=== PATIENT | male | born 1995 | race Caucasian/White ===

== ENCOUNTER → 2017-01-15 | Outpatient (CLI) | payer MEDICAID ==
[~2017-01-15] MED LIST: BACTROBAN2% TP; KEFLEX 500MG.500 MG PO; LEVAQUIN 750 M750 MG PO; MOTRIN400 MG PO; PROTONIX 40MG T40 MG PO; ZITHROMAX Z-PA250 M1 PO
--- NOTE | 2017-01-15 14:48 | RADIOLOGY REPORT PS360 ---
PROCEDURE: 2-D M-mode and color Doppler study INDICATIONS FOR THE TEST: Chest pain COPD Heart Murmur Tobacco Smoking Palpitations Fatigue Syncope Edema Hypertension Diabetes Mellitus Rheumatic Fever SOB BALLARD Obesity Hyperlipidemia Family History HD Additional History PERICARDIAL WINDOW,TACHYCARDIA PATIENT INFORMATION HEIGHT: 72 WEIGHT:187 GENDER: Male B/P:136/69 2-D/M-MODE INTERPRETATION: 2-D MEASUREMENTS OBSERVED VALUES IN CMS Right Ventricular Dimension (RVDd) 2.3. Interventricular Septum (Thickness)(IVsd) .9 Left Ventricular Internal Dimensions(LVIDd) 5.5 Left Ventricular Posterior Wall (Thickness)(LVPWd) .9 Aortic Root 3.0 Aortic Cusp Separation 1.7 Left Atrial Dimensions (LAD) 2.7 2D 1. Left atrium is normal size, left ventricle is normal size, there is no concentric left ventricular hypertrophy, visually estimated ejection fraction of 55% with no obvious regional wall motion abnormality. 2. The right atrium and right ventricle are normal size and contractility. 3. The aortic, mitral and tricuspid valve is structurally normal. 4. The pulmonic valve is not well visualized. 5. No significant pericardial effusion noted. DOPPLER INTERROGATION: Doppler interrogation of the aortic mitral and tricuspid valvular presence of mild mitral and tricuspid regurgitation, tricuspid regurgitant jet velocity insufficient for calculation of the right ventricular systolic pressure, diastolic parameters are within normal range. CONCLUSION: 1. Normal left ventricular size, preserved left ventricular systolic function, visually estimated ejection fraction of 55% with no obvious regional wall motion abnormality, there is no concentric left ventricular hypertrophy, diastolic parameters are within normal range. 2. Mild mitral and tricuspid regurgitation. 3. No significant pericardial effusion noted.
== END ==
LOC: RT 07:42
DX: R00.0 Tachycardia, unspecified (principal); M25.511 Pain in right shoulder; Z86.79 Personal history of other diseases of the circulatory system

== ENCOUNTER 2017-05-05 12:47 | Emergency (ER) | payer SELFPAY ==
[~2017-05-05] VITALS: Ht 182.9 cm; Wt 90.7 kg
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
[2017-05-05 13:20] VITALS: BP 126/70
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
--- OUTSIDE RECORDS SUMMARY | 2017-05-06 17:13 | External Medical Summary Rpt ---
Author Author , CONSTANZA Organization CONSTANZA Address Unknown Phone [email or web address] Care Team Providers Care Communications Officer Name Role Phone AHMED ADN, AHMED ADN Unavailable Unavailable AHMED ADN, AHMED ADN Unavailable Unavailable ARNOLD EVERARDO, ARNOLD Unavailable Unavailable EVERARDO ARNOLD EVERARDO, ARNOLD Unavailable Unavailable EVERARDO [facility] Unavailable Unavailable COMPANY, [facility] SWAN RASHEL, SWAN RASHEL Unavailable Unavailable KATHY, MANNY, Unavailable Unavailable KATHY, MANNY [facility] [place], [facility] [place] GAEL HEN, GAEL Unavailable Unavailable HEN GAEL HEN, GAEL Unavailable Unavailable HEN MOON HINTON, Unavailable Unavailable MOON HINTON RIT, HODGES Unavailable Unavailable RIT HAGCHSHANNON SOSA, Unavailable Unavailable HAGENSCHNEIDER SOSA ENGLAND TER, ENGLAND Unavailable Unavailable TER [facility] Un[facility] Un[facility], [facility] MASTERS EVERARDO, MASTERS Unavailable Unavailable EVERARDO TURCIOS COLBY, TURCIOS COLBY Unavailable Unavailable TURCIOS COLBY, TURCIOS COLBY Unavailable Unavailable JENNIFER GRE, Unavailable Unavailable JENNIFER GRE JENNIFER GRE, Unavailable Unavailable JENNIFER GRE [facility] Unavailable Unavailable ASSOCIAT, [facility], ASSOCIATE PROFESSOR OF SURGERY [facility] Unavailable Unavailable CO [facility], [facility], ASSOCIATE PROFESSOR OF SURGERY AB[facility] CO [facility], Unavailable Unavailable [facility] Unavailable Unavailable [facility]ALTH, [facility] SWARTZ JAM, SWARTZ Unavailable Unavailable JAM SWARTZ JAM, SWARTZ Unavailable Unavailable LENNY STALEYFRBLESSING Unavailable Unavailable BROOKLYN DUNLAP, Unavailable Unavailable [place]OOK[place]N JAMES CHAPA, JOSE G Unavailable Unavailable EDUARD HERNANDEZ JR ZION, DAVID Unavailable Unavailable ZION Purpose Continuity of Care Document - 06-03-2009 through 2016 Problems Code Diagnosis DOS Provider Status 3670 HYPERMETROP 10-27-2013 TURCIOS COLBY IA V720 EXAMINATION 11-27-2012 JENNIFER OF EYES GRE AND VISION 460 ACUTE 11-26-2012 AHMED ADN NASOPHARYNG ITIS 4658 ACUTE URIS 04-15-2012 GAEL HEN OF OTHER MULTIPLE SITES 7856 ENLARGEMENT 04-15-2012 GAEL HEN OF LYMPH NODES V1582 PERS HX 04-15-2012 GAEL HEN TOBACCO USE PRESENTING [facility] V5869 LONG-TERM 04-15-2012 GAEL HEN (CURRENT) USE OF OTHER MEDICATIONS 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 49848 PAIN IN 03-21-2012 [facility], RADIOLOGY UPPER ARM ASSOCIAT 09911 PAIN IN 03-21-2012 AHMED ADN JOINT PELVIC REGION AND THIGH 7231 CERVICALGIA 03-21-2012 [facility] 7291 UNSPECIFIED 03-21-2012 [facility], MYALGIA ASSOCIATE PROFESSOR OF SURGERY AND [facility] MYOSITIS HOS 7292 UNSPECIFIED 03-21-2012 [facility], NEURALGIA ASSOCIATE PROFESSOR OF SURGERY NEURITIS [facility] CO AND HOS RADICULITIS 7295 PAIN IN 03-21-2012 [facility] TISSUES OF ASSOCIAT LIMB 93551 PAIN IN 02-18-2012 [facility], RADIOLOGY ANKLE AND ASSOCIAT FOOT 52749 UNSPECIFIED 02-18-2012 [facility], SITE OF ASSOCIATE PROFESSOR OF SURGERY ANKLE [facility] CO SPRAIN AND HOS STRAIN 9599 INJURY 02-18-2012 [facility] OTHER AND [facility] UNSPECIFIED ASSOCIAT UNSPECIFIED SITE 462 ACUTE 12-07-2011 ARNOLD EVERARDO PHARYNGITIS 4660 ACUTE 12-07-2011 ARNOLD EVERARDO BRONCHITIS 64574 UNSPECIFIED 10-25-2011 JENNIFER GRE ASTIGMATISM 0088 INTESTINAL 08-29-2011 [facility] DUE TO OTHER ORGANISM NEC 7242 LUMBAGO 08-22-2011 [facility] 7391 NONALLOPATH 08-22-2011 [facility] OF CERVICAL [facility] REGION NEC 7393 NONALLOPATH 08-22-2011 [facility] OF LUMBAR [facility] REGION NEC 0549 HERPES 06-05-2011 [facility] SIMPLEX [facility] WITHOUT RURAL MENTION OF HEALTH COMPLICATIO N 12460 CLOS 02-22-2011 SWARTZ JAM FRACTURE MID/PROXIMA L PHALANX/PHA LANG HAND 77498 CLOSED 02-21-2011 [facility] FRACTURE [facility] UNSPEC RURAL PHALANX/PHA HEALTH LANGES HAND 486 PNEUMONIA, 01-24-2010 [facility] UNSPECIFIED SERVICES ASS[facility]ATES 7862 COUGH 01-24-2010 [facility] Medications Na ND Rx Da Fi Fi Am Da Di Ph RX Ph St me C No te ll ll ou ys ag ar # ys at rm s nt no ma ic us Or Da si cy ia de te s n re d AM 00 09 09 0 21 7 CA 68 AH Ac OX 78 -0 -0 .0 RL 57 ME ti IC 12 6- 6- 00 IS 93 D ve IL 61 20 20 LE AD LI 30 11 [address] Mila 50 UG 0 MG CO MP CA AN PS Y UL E 64 09 09 1 30 14 CA 68 AH Ac 45 -0 -0 .0 RL 57 ME ti 50 6- 6- 00 IS 94 D ve 99 20 20 LE AD 39 [address] N UG CO MP AN Y NA 53 05 05 1 60 30 CA 68 AH Ac IA 74 -2 -2 .0 RL 16 ME ti OX 60 5- 5- 00 IS 64 D ve EN 18 20 20 LE AD 90 11 [address] Mila 5 UG MG CO TA MP BL AN ET Y AB 59 04 04 1 30 30 CA 67 GH Ac IL 14 -0 -0 .0 RL 99 AN ti IF 80 7- 7- 00 IS 03 TA ve Y 00 20 20 LE 5 71 [address] ME UG SH TA BL CO ET MP AN Y AZ 00 11 11 1 6. 6 EA 20 AR Ac IT 09 -2 -[address] 09 NO ti HR 37 2- 2- 0 SI 72 LD ve OM 14 20 20 DE YC 61 10 10 RI IN 8 PH CH AR AR 25 MA D 0 CY W MG OF TA BL CY ET NT HI AN A AZ 00 04 04 0 6. 6 EA 17 GA Ac IT 09 -2 -[address] 36 IN ti HR 37 7- 7- 0 SI 14 EY ve OM 14 20 20 DE YC 61 10 10 AL IN 8 PH CH AR AE 25 MA L 0 CY S MG OF TA BL CY ET NT HI AN A 49 04 04 0 40 10 EA 17 GA Ac 88 -2 -[address] 36 IN ti 40 7- 7- 00 SI 15 EY ve 77 20 20 DE 70 10 10 AL 1 PH CH AR AE MA L CY S OF CY NT HI AN A Procedures Procedure DOS Code Location Performer Comment [facility] 59636 [facility] 4 XM&EVAL COMPRHNSV ESTAB PT 1/> OPHTH 38323 JENNIFER RODRIGUEZ MEDICAL 3 GRE GRE XM&EVAL COMPRHNSV ESTAB PT 1/> DETERMINA 83475 JENNIFER RODRIGUEZ TION 3 GRE GRE REFRACTIV E STATE RADEX 87784 [facility] SPINE 2 EVERARDO CERVICAL RADIOLOGY 4 OR 5 ASSOCIAT VIEWS RADEX 87261 [facility] ELBOW 2 2 ASSOCIATE PROFESSOR OF SURGERY ASSOCIATE PROFESSOR OF SURGERY VIEWS AB[facility] CO HOS MYOGLOBIN 00672 [facility], 2 ASSOCIATE PROFESSOR OF SURGERY ASSOCIATE PROFESSOR OF SURGERY ABBIE [facility] CO HOS BLOOD 98486 [facility], DAVID JR COUNT 2 ASSOCIATE PROFESSOR OF SURGERY ZION COMPLETE [facility] AUTO&AUTO CO HOS DIFRNTL WBC RHEUMATOI 35058 [facility], D FACTOR 2 ASSOCIATE PROFESSOR OF SURGERY ASSOCIATE PROFESSOR OF SURGERY QUANTITAT AB[facility] ALY CO HOS CO HOS COMPREHEN 63914 [facility], SIVE 2 ASSOCIATE PROFESSOR OF SURGERY ASSOCIATE PROFESSOR OF SURGERY METABOLIC AB[facility]E [facility] PANEL CO HOS CO HOS BLOOD 22747 [facility], COUNT 2 ASSOCIATE PROFESSOR OF SURGERY ASSOCIATE PROFESSOR OF SURGERY SMEAR ABBIE [facility] MCRSCP CO HOS CO HOS W/MNL DIFRNTL WBC COUNT CREATINE 75215 [facility], KINASE MB 2 ASSOCIATE PROFESSOR OF SURGERY ASSOCIATE PROFESSOR OF SURGERY FRACTION ABBIE [facility] ONLY CO HOS CO HOS CREATINE 96653 [facility], KINASE 2 ASSOCIATE PROFESSOR OF SURGERY ASSOCIATE PROFESSOR OF SURGERY TOTAL ABBIE [facility] CO [facility] CO HOS SEDIMENTA 68570 [facility] TION RATE 2 ASSOCIATE PROFESSOR OF SURGERY ASSOCIATE PROFESSOR OF SURGERY RBC ABBIE [facility] NON-AUTOM CO HOS CO HOS ATED RADEX 86749 [facility] ELBOW 2 EVERARDO COMPLETE RADIOLOGY MINIMUM 3 ASSOCIAT VIEWS RADIOLOGI 99180 [facility] C 2 EVERARDO EXAMINATI RADIOLOGY ON FEMUR ASSOCIAT 2 VIEWS RADEX 91547 [facility], ANKLE 2 ASSOCIATE PROFESSOR OF SURGERY ASSOCIATE PROFESSOR OF SURGERY COMPLETE ABBIE ABBIE MINIMUM 3 CO HOS [facility] VIEWS RADIOLOGI 56392 [facility] EVERARDO EXAMINATI RADIOLOGY ON ANKLE ASSOCIAT 2 VIEWS OPHTH 23041 JENNIFER RODRIGUEZ [facility] 2 GRE GRE XM&EVAL COMPRE NEW PT 1/> VST FITTING 28343 KAR[place]INA TURCIOS COLBY SPECTACLE 2 S XCPT APHAKIA MONOFOCAL FRAMES V2020 K[place]INA TURCIOS COLBY PURCHASES 2 1 VISN V2103 [place] TURCIOS COLBY PLANO 2 TO+/-4.00 D SPHER 0.12-2.00 D CYL EA DETERMINA 11590 JENNIFER RODRIGUEZ TION 2 GRE GRE REFRACTIV E STATE THERAPEUT 46934 [facility] IC PX 1/> 1 [facility] CTR OF EACH [address] [place] [address] [facility] 1/> AREAS 1 [facility] EACH 15 CTR OF CTR [place] [address] [facility] 1/> AREAS 1 [facility] EACH 15 CTR OF CTR OF MIN MT MT NEUROMUSC REEDUCA THERAPEUT 86474 [facility] ONE IC PX 1/> 1 [facility] AREAS CTR OF CTR OF EACH 15 MT MT MIN EXERCISES CHIROPRAC 13444 [facility] TIC 1 [facility] MANIPULAT CTR OF CTR OF ALY [place] MT MT SPINAL 1-2 REGIONS APPL 92307 [facility] MODALITY 1 [facility] 1/> AREAS CTR OF CTR OF TRACTION MT MT MECHANICA L THERAPEUT 73766 [facility] ACTVITY 1 [facility] DIRECT PT CTR OF CTR OF CONTACT MT MT EACH 15 MIN THERAPEUT 03877 [facility] ACTVITY 1 [facility] DIRECT PT CTR OF CTR OF CONTACT MT MT EACH 15 MIN APPL 66878 [facility] MODALITY 1 [facility] WELLNESS 1/> AREAS CTR OF CTR OF TRACTION MT MT MECHANICA L CHIROPRAC 91701 [facility] TIC 1 [facility] MANIPULAT CTR OF CTR OF ALY [place] MT SPINAL 1-2 REGIONS THERAPEUT 56942 CH[facility] ONE [facility]IR[facility] ONE IC PX 1/> 1 [facility] AREAS CTR OF CTR OF EACH 15 [place] [address] [facility] ONE CHIRO ONE 1/> AREAS 1 [facility] EACH 15 CTR OF CTR [place] [address] [facility] ONE CHIRO ONE 1/> AREAS 1 [facility] EACH 15 CTR OF CTR OF MIN MT MT NEUROMUSC REEDUCA THERAPEUT 50229 [facility] ONE CHIRO ONE IC PX 1/> 1 [facility] AREAS CTR OF CTR OF EACH 15 MT MT MIN EXERCISES CHIROPRAC 01461 [facility] ONE TIC 1 [facility] MANIPULAT CTR OF CTR OF ALY TX MT MT SPINAL 1-2 REGIONS APPL 47833 [facility] ONE MODALITY 1 [facility] WELLNESS 1/> AREAS CTR OF CTR OF TRACTION MT MT MECHANICA L THERAPEUT 27692 [facility] ACTVITY 1 [facility] DIRECT PT CTR OF CTR OF CONTACT MT MT EACH 15 MIN THERAPEUT 31122 [facility] ACTVITY 1 [facility]NESS DIRECT PT CTR OF CTR OF CONTACT MT MT EACH 15 MIN APPL 54569 [facility] MODALITY 1 [facility] WELLNESS 1/> AREAS CTR OF CTR OF TRACTION MT MT MECHANICA L CHIROPRAC 23612 [facility] TIC 1 [facility] MANIPULAT CTR OF CTR OF ALY TX MT MT SPINAL 1-2 REGIONS SELF-CARE 26776 [facility] /HOME 1 [facility] MGMT CTR OF CTR OF TRAINING MT MT EACH 15 MINUTES THERAPEUT 03564 CH[facility] ONE CHIRO ONE IC PX 1/> 1 [facility] AREAS CTR OF CTR OF EACH [place] [address] [facility] ONE CHIRO ONE 1/> AREAS 1 [facility] EACH 15 CTR OF CTR [place] [address] [facility] ONE CHIRO ONE 1/> AREAS 1 [facility] EACH 15 CTR OF CTR OF MIN MT MT NEUROMUSC REEDUCA THERAPEUT 26503 CHIRO ONE CHIRO ONE IC PX 1/> 1 [facility] AREAS CTR OF CTR OF EACH 15 MT MT MIN EXERCISES CHIROPRAC 48502 [facility] ONE TIC 1 [facility] MANIPULAT CTR OF CTR OF ALY TX MT MT SPINAL 1-2 REGIONS APPL 65159 [facility] ONE [facility]IR[facility] ONE MODALITY 1 [facility] WELLNESS 1/> AREAS CTR OF CTR OF TRACTION MT MT MECHANICA L THERAPEUT 20826 [facility] ONE ACTVITY 1 [facility] DIRECT PT CTR OF CTR OF CONTACT MT MT EACH 15 MIN THERAPEUT 58221 [facility] ACTVITY 1 [facility]NESS DIRECT PT CTR OF CTR OF CONTACT MT MT EACH 15 MIN APPL 58132 [facility] ONE MODALITY 1 [facility] 1/> AREAS CTR OF CTR OF TRACTION MT MT MECHANICA L CHIROPRAC 49043 [facility] ONE TIC 1 [facility] MANIPULAT CTR OF CTR OF ALY TX MT MT SPINAL 1-2 REGIONS THERAPEUT 53108 CH[facility] ONE CHIRO ONE IC PX 1/> 1 [facility] AREAS CTR OF CTR OF EACH [place] [address] [facility] ONE CHIRO ONE 1/> AREAS 1 [facility] EACH 15 CTR OF CTR [place] [address] CHIR[facility] ONE CHIRO ONE 1/> AREAS 1 [facility] EACH 15 CTR OF CTR OF MIN MT MT NEUROMUSC REEDUCA THERAPEUT 99044 [facility] ONE CHIRO ONE IC PX 1/> 1 [facility] AREAS CTR OF CTR OF EACH 15 MT MT MIN EXERCISES CHIROPRAC 92252 [facility] ONE TIC 1 [facility] MANIPULAT CTR OF CTR OF ALY [place] MT MT SPINAL 1-2 REGIONS APPL 50356 [facility] ONE MODALITY 1 [facility] WELLNESS 1/> AREAS CTR OF CTR OF TRACTION MT MT MECHANICA L THERAPEUT 18225 [facility] ONE ACTVITY 1 [facility] DIRECT PT CTR OF CTR OF CONTACT [place] MT EACH 15 MIN THERAPEUT 24458 [facility] ONE ACTVITY 1 [facility] WE[facility]NESS DIRECT PT CTR OF CTR OF CONTACT MT MT EACH 15 MIN APPL 42735 [facility] ONE [facility] ONE MODALITY 1 WE[facility] WELLNESS 1/> AREAS CTR OF CTR OF TRACTION [place] MT MECHANICA L CHIROPRAC 55869 [facility] ONE TIC 1 [facility] MANIPULAT CTR OF CTR OF ALY [place] MT SPINAL 1-2 REGIONS THERAPEUT 36636 CH[facility] ONE [facility]IR[facility] ONE IC PX 1/> 1 [facility] AREAS CTR OF CTR OF EACH [place] [address] [facility] ONE CHIRO ONE 1/> AREAS 1 [facility] EACH 15 CTR OF CTR [place] [address] [facility] ONE CHIRO ONE 1/> AREAS 1 [facility] EACH 15 CTR OF CTR OF MIN MT MT NEUROMUSC REEDUCA THERAPEUT 45302 [facility] CHIRO ONE IC PX 1/> 1 [facility] AREAS CTR OF CTR OF EACH 15 MT MT MIN EXERCISES CHIROPRAC 44732 [facility] TIC 1 [facility] MANIPULAT CTR OF CTR OF ALY [place] MT SPINAL 1-2 REGIONS APPL 56172 [facility] ONE MODALITY 1 [facility] WELLNESS 1/> AREAS CTR OF CTR OF TRACTION MT MT MECHANICA L THERAPEUT 46468 [facility] ACTVITY 1 [facility] DIRECT PT CTR OF CTR OF CONTACT MT MT EACH 15 MIN THERAPEUT 82368 [facility] ACTVITY 1 [facility] WELLNESS DIRECT PT CTR OF CTR OF CONTACT MT MT EACH 15 MIN APPL 26369 [facility] MODALITY 1 [facility] WELLNESS 1/> AREAS CTR OF CTR OF TRACTION [place] MT MECHANICA L CHIROPRAC 80412 [facility] TIC 1 [facility] MANIPULAT CTR OF CTR OF ALY [place] MT SPINAL 1-2 REGIONS THERAPEUT 69717 [facility] ONE CHIRO ONE IC PX 1/> 1 [facility] AREAS CTR OF CTR OF EACH [place] [address] [facility] ONE CHIRO ONE 1/> AREAS 1 [facility] EACH 15 CTR OF [facility] [place] [address] [facility] ONE CHIRO ONE 1/> AREAS 1 [facility] EACH 15 CTR OF CTR OF MIN MT MT NEUROMUSC REEDUCA THERAPEUT 73667 CHIRO ONE CHIRO ONE IC PX 1/> 1 [facility] AREAS CTR OF CTR OF EACH 15 MT MT MIN EXERCISES CHIROPRAC 09296 [facility] ENGLAND TIC [address] MANIPULAT CTR OF ALY [place] SPINAL 1-2 REGIONS APPL 70544 [facility] ONE MODALITY 1 [facility]LLNESS 1/> AREAS CTR OF CTR OF TRACTION [place] MT MECHANICA L APPL 33146 [facility] ONE MODALITY 1 [facility]LLNESS 1/> AREAS CTR OF CTR OF TRACTION MT MT MECHANICA L CHIROPRAC 64695 [facility] TIC 1 [facility] MANIPULAT CTR OF CTR OF ALY [place] MT SPINAL 1-2 REGIONS THERAPEUT 71297 [facility] ONE IC PX 1/> 1 [facility] AREAS CTR OF CTR OF EACH [place] [address] [facility] ONE CHIRO ONE 1/> AREAS 1 [facility] EACH 15 CTR OF CTR OF MIN MT MT NEUROMUSC REEDUCA THERAPEUT 89532 [facility] ACTVITY 1 [facility] DIRECT PT CTR OF CTR OF CONTACT MT MT EACH 15 MIN THERAPEUT 43794 [facility] HODGES ACTVITY 1 WELLNESS RIT DIRECT PT CTR OF CONTACT [place] [address] [place] [address] [facility] ONE CHIRO ONE 1/> AREAS 1 [facility] EACH 15 CTR OF CTR OF MIN MT MT NEUROMUSC REEDUCA THERAPEUT 32838 [facility]IR[facility] ONE HODGES IC PX /> 1 WELLNESS RIT AREAS CTR OF EACH 15 MT MIN EXERCISES CHIROPRAC 78079 [facility] ONE TIC 1 [facility] MANIPULAT CTR OF CTR OF ALY [place] MT MT SPINAL 1-2 REGIONS APPL 26038 [facility] MODALITY 1 [facility]LLNESS 1/> AREAS CTR OF CTR OF TRACTION MT MT MECHANICA L RADEX 23073 [facility] JOSE G SPINE 1 WELLNESS CHAPA CERVICAL CTR OF 2 OR 3 MT VIEWS CHIROPRAC 61537 [facility] JOSE G TIC 1 WELLNESS CHAPA MANIPULAT CTR OF ALY [place] SPINAL 1-2 REGIONS RADEX 42038 [facility] JOSE G SPINE 1 [facility] CERVICAL CTR OF 2 OR 3 MT VIEWS RADEX 13848 [facility] JOSE G SPINE 1 WELLNESS CHAPA LUMBOSACR CTR OF AL 2/3 MT VIEWS IAADIADOO 08181 ABBIE NI ADN 1 [facility] A RADEX 05040 [facility] HAND 1 EIDER SOSA MINIMUM 3 RADIOLOGY VIEWS ASSOCIAT ECG 34173 RASHEL SWAN SWAN RASHEL ROUTINE 1 ECG CONSULTIN W/LEAST G SRV 12 LDS I&R ONLY OPHTH 70147 CHRISTOPHER JAMES MEDICAL 0 VISION ANG XM&EVAL COMPRHNSV ESTAB PT 1/> COMPREHEN 84559 [facility]I [facility]REGON SIVE 0 [facility] METABOLIC INC INC PANEL RADIOLOGI 17892 M[facility]I [facility] C EXAM 0 [facility] CHEST 2 INC INC VIEWS [place]AL&[place] [address] MINDI OBREG[facility] STREPTOCO 0 [facility] [place] [address] MINDI OBREGON INFUSION 0 [facility] THER INC INC PROPH ADDL SEQUENTIA L TO 1 HR IMMUNOASS 49816 MINDI OBREGON AY NFCT 0 [facility] AGT ANTB INC INC QUAL/SEMI TETO 1 STEP URNLS DIP 37432 [facility]I [facility] 0 [facility] STICK/TAB INC INC LET REAGENT AUTO MICROSCOP Y BLOOD 28434 [facility] COUNT 0 [facility] COMPLETE INC INC AUTO&[place] [address] MINDI [facility]REG[facility] INFUSION 0 [facility] THERAPY/P INC INC ROPHYLAXI S /DX 1ST TO 1 HR OPH 77368 CHRISTOPHER JAMES, [facility] 9 VISION [place] M XM&EVAL COMPRE NEW PT 1/> VST Encounters Encounter Start End Date Code Location Performer Type Date OFFICE 69408 LAST CARTYMED ADN OUTPATIEN 3 3 T VISIT 15 MINUTES EMERGENCY 43281 GAEL GAEL 2 2 HEN HEN DEPARTMEN T VISIT MODERATE SEVERITY OFFICE 98572 MACHELLEMED JANINE CARTYMED ADN OUTPATIEN 2 2 T VISIT [facility]UTES [facility]PITAL [facility] - 2 2 ASSOCIATE PROFESSOR OF SURGERY OUTPATIEN [facility] T [facility] EMERGENCY 19449 [facility], 2 2 ASSOCIATE PROFESSOR OF SURGERY DEPARTMEN ABBIE T VISIT CO HOS LIMITED/[facility], - 2 2 ASSOCIATE PROFESSOR OF SURGERY OUTPATIEN ABBIE T CO HOS EMERGENCY 26507 [facility], 2 2 ASSOCIATE PROFESSOR OF SURGERY DEPARTMEN ABBIE T VISIT CO HOS MODERATE SEVERITY OFFICE 58252 ALYSSA SHAH OUTPATIEN 2 2 EVERARDO EVERARDO T VISIT 15 MINUTES EMERGENCY 33587 LAST MEHTA 1 1 DEPARTMEN T VISIT LIMITED/M [facility]BIE - 1 1 [facility] T OFFICE 86003 [facility] OUTPATIEN 1 1 [facility] T VISIT CTR OF 15 MT MINUTES OFFICE 73648 [facility] OUTPATIEN 1 1 WELLNESS T VISIT 5 CTR OF MINUTES MT OFFICE 09364 [facility] JOSE G OUTPATIEN 1 1 [facility]LL[facility]APA T VISIT CTR OF 10 MT MINUTES OFFICE 93362 [facility] JOSE G OUTPATIEN 1 1 [facility]AP[facility] T NEW 45 CTR OF MINUTES MT OFFICE 73937 AB[facility]E ROMANEN 1 1 COUNTY T NEW 45 RURAL MINUTES HEALTH OFFICE 87892 SWARTZ SWARTZ OUTPATIEN 1 1 [facility] T NEW 30 MINUTES EMERGENCY 49339 AB[facility]E MEHTA 1 1 [facility] T VISIT HEALTH HIGH/URGE NT SEVERITY HOSPITAL [facility]BIE - 1 1 [facility] T EMERGENCY 35404 [facility]E 1 1 [facility] VIS[facility] LIMITED/M INOR PROB OFFICE 48798 ALYSSA SHAH OUTPATIEN 0 0 EVERARDO EVERARDO T NEW 30 MINUTES EMERGENCY 20908 MINDI 0 0 [facility] DEPARTMEN INC T VISIT MODERATE SEVERITY HOSPITAL MINDI - 0 0 [facility] OUTPATIEN INC T EMERGENCY 73323 JENNIFER HINTON, 0 0 EMERGENCY [facility] S DEPARTMEN SERVICES T VISIT HIGH/URGE ASSOCIATE DORITA S SEVERITY
--- OUTSIDE RECORDS SUMMARY | 2017-05-06 17:13 | External Medical Summary Rpt ---
Author Author , CONSTANZA Organization CONSTANZA Address Unknown Phone [email or web address] Care Team Providers Care Board Worker Name Role Phone AHMED ADN, AHMED ADN Unavailable Unavailable AHMED ADN, AHMED ADN Unavailable Unavailable ARNOLD EVERARDO, ARNOLD Unavailable Unavailable EVERARDO ARNOLD EVERARDO, ARNOLD Unavailable Unavailable EVERARDO [employer] Unavailable Unavailable COMPANY, [facility] [employer] [facility] SWAN RASHEL, SWAN RASHEL Unavailable Unavailable KATHY, MANNY, Unavailable Unavailable KATHY, MANNY [facility] Unavailable [place]available [place], [facility] [place] GAEL HEN, GAEL Unavailable [...] GRE JENNIFER GRE, Unavailable Unavailable JENNIFER GRE [facility] Unavailable Unavailable ASSOCIAT, [facility], EVAPORATOR REPAIRER AB[facility] Unavailable Unavailable CO HOS, [facility], EVAPORATOR REPAIRER ABBIE CO HOS [facility], Unavailable Unavailable [facility] Unavailable Unavailable HEALTH, [facility] SWARTZ JAM, SWARTZ Unavailable Unavailable JAM SWARTZ [...] HX 04-15-2012 GAEL HEN TOBACCO USE PRESENTING [facility] V5869 LONG-TERM 04-15-2012 GAEL HEN (CURRENT) USE OF OTHER MEDICATIONS 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 60655 PAIN IN 03-21-2012 [facility] JOINT, RADIOLOGY UPPER ARM ASSOCIAT 96660 PAIN IN 03-21-2012 AHMED ADN JOINT PELVIC REGION AND THIGH 7231 CERVICALGIA 03-21-2012 [facility] 7291 UNSPECIFIED 03-21-2012 [facility], MYALGIA EVAPORATOR REPAIRER AND [facility] CO MYOSITIS HOS 7292 UNSPECIFIED 03-21-2012 [facility], NEURALGIA EVAPORATOR REPAIRER NEURITIS [facility] CO AND HOS RADICULITIS 7295 PAIN IN 03-21-2012 [facility] SOFT [facility] TISSUES OF ASSOCIAT LIMB 72830 PAIN IN 02-18-2012 EDWARD JOINT, RADIOLOGY ANKLE AND ASSOCIAT FOOT 14719 UNSPECIFIED 02-18-2012 [facility], SITE OF EVAPORATOR REPAIRER ANKLE [facility] CO SPRAIN AND HOS STRAIN 9599 INJURY 02-18-2012 EDWARD OTHER AND RADIOLOGY UNSPECIFIED ASSOCIAT UNSPECIFIED SITE 462 ACUTE 12-07-2011 ARNOLD EVERARDO PHARYNGITIS 4660 ACUTE 12-07-2011 ARNOLD EVERARDO BRONCHITIS 61490 UNSPECIFIED 10-25-2011 JENNIFER GRE ASTIGMATISM 0088 INTESTINAL 08-29-2011 [facility] DUE TO OTHER ORGANISM NEC 7242 LUMBAGO 08-22-2011 [facility] 7391 NONALLOPATH 08-22-2011 [facility] OF C[facility] NEC 7393 NONALLOPATH 08-22-2011 [facility] OF LUMBAR [facility] NEC 0549 HERPES 06-05-2011 AB[facility] WITHOUT RURAL MENTION OF HEALTH COMPLICATIO N 21990 CLOS 02-22-2011 SWARTZ JAM FRACTURE MID/PROXIMA L PHALANX/PHA LANG HAND 32709 CLOSED 02-21-2011 [facility] FRACTURE [facility] UNSPEC RURAL PHALANX/PHA HEALTH LANGES HAND 486 PNEUMONIA, 01-24-2010 [facility] EMERGENCY UNSPECIFIED SERVICES ASSOCIATES 7862 COUGH 01-24-2010 [facility] Medications Na ND Rx [...] 1 60 30 CA 68 AH Ac MA 74 -2 -2 .0 RL 16 ME [...] 20 20 DE YC [address] IN 8 PH CH AR AE 25 MA L 0 CY S MG OF TA BL CY ET NT HI AN A 49 04 04 0 40 10 EA 17 GA Ac 88 -2 -[address] 36 IN ti 40 7- 7- 00 SI 15 EY ve 77 20 20 DE [address] 1 PH CH AR AE MA L CY S OF CY NT HI AN A Procedures Procedure DOS Code Location Performer Comment [facility] [address] [facility] MEDICAL 4 XM&EVAL COMPRHNSV ESTAB PT 1/> OPHTH 51618 JENNIFER RODRIGUEZ MEDICAL 3 GRE GRE XM&EVAL COMPRHNSV ESTAB PT 1/> DETERMINA 43522 JENNIFER RODRIGUEZ TION 3 GRE GRE REFRACTIV E STATE RADEX 89997 [facility] SPINE 2 EVERARDO CERVICAL RADIOLOGY 4 OR 5 ASSOCIAT VIEWS RADEX 99573 [facility], [facility], ELBOW 2 2 EVAPORATOR REPAIRER EVAPORATOR REPAIRER VIEWS ABBIE [facility] CO HOS CO HOS MYOGLOBIN 94986 [facility], [facility], 2 EVAPORATOR REPAIRER EVAPORATOR REPAIRER ABBIE [facility]E CO HOS CO HOS BLOOD 35255 [facility], DAVID JR COUNT 2 EVAPORATOR REPAIRER ZION COMPLETE ABBIE AUTO&AUTO CO HOS DIFRNTL WBC RHEUMATOI 07294 [facility], [facility], D FACTOR 2 EVAPORATOR REPAIRER EVAPORATOR REPAIRER QUANTITAT ABBIE [facility] ALY CO HOS CO HOS COMPREHEN 87348 [facility], [facility], SIVE 2 EVAPORATOR REPAIRER EVAPORATOR REPAIRER METABOLIC ABBIE ABBIE PANEL CO HOS CO HOS BLOOD 67770 [facility], [facility], COUNT 2 EVAPORATOR REPAIRER EVAPORATOR REPAIRER SMEAR ABBIE AB[facility]E MCRSCP CO HOS CO HOS W/MNL DIFRNTL WBC COUNT CREATINE 24820 [facility], [facility], KINASE MB 2 EVAPORATOR REPAIRER EVAPORATOR REPAIRER FRACTION ABBIE ABBIE ONLY CO HOS CO HOS CREATINE 28014 [facility], [facility], KINASE 2 EVAPORATOR REPAIRER EVAPORATOR REPAIRER TOTAL ABBIE ABBIE CO HOS CO HOS SEDIMENTA 99110 [facility], [facility], TION RATE 2 EVAPORATOR REPAIRER EVAPORATOR REPAIRER RBC ABBIE ABBIE NON-AUTOM CO HOS CO HOS ATED RADEX 53968 [facility] ELBOW 2 EVERARDO COMPLETE RADIOLOGY MINIMUM 3 ASSOCIAT VIEWS RADIOLOGI 30104 [facility] C 2 EVERARDO EXAMINATI RADIOLOGY ON FEMUR ASSOCIAT 2 VIEWS RADEX 28705 [facility], [facility], ANKLE 2 EVAPORATOR REPAIRER EVAPORATOR REPAIRER COMPLETE ABBIE ABBIE MINIMUM 3 CO HOS [facility]OLOGI 12222 [facility] EVERARDO EXAMINATI RADIOLOGY ON ANKLE ASSOCIAT 2 VIEWS OPHTH 36185 JENNIFER RODRIGUEZ [facility] 2 GRE GRE XM&EVAL COMPRE NEW PT 1/> VST FITTING 96606 [facility] SPECTACLE 2 S XCPT APHAKIA MONOFOCAL FRAMES V2020 [facility] PURCHASES 2 1 VISN V2103 [facility] PLANO 2 TO+/-4.00 D SPHER 0.12-2.00 D CYL EA DETERMINA 10839 JENNIFER RODRIGUEZ TION 2 GRE GRE REFRACTIV E STATE THERAPEUT 70857 [facility] IC PX 1/> 1 [facility] [place]ACH [address] [place] [address] [facility] 1/> AREAS 1 [facility] EACH 15 CTR OF CTR [place] [address] [facility] 1/> AREAS 1 [facility] EACH 15 CTR OF CTR OF MIN [place] MT NEUROMUSC REEDUCA THERAPEUT 35288 [facility] IC PX 1/> 1 [facility] ARE[facility] CTR OF CTR OF EACH 15 MT MT MIN EXERCISES CHIROPRAC 34010 [facility] TIC 1 [facility] MANIPULAT CTR OF CTR OF ALY [place] MT SPINAL 1-2 REGIONS APPL 52651 [facility] MODALITY 1 [facility] 1/> AREAS CTR OF CTR OF TRACTION MT MT MECHANICA L THERAPEUT 30477 [facility] ACTVITY 1 [facility] DIRECT PT CTR OF CTR OF CONTACT MT MT EACH 15 MIN THERAPEUT 19019 [facility] ACTVITY 1 [facility] DIRECT PT CTR OF CTR OF CONTACT MT MT EACH 15 MIN APPL 12564 [facility] MODALITY 1 [facility] 1/> AREAS CTR OF CTR OF TRACTION [place] MT MECHANICA L CHIROPRAC 55994 [facility] TIC 1 [facility] MANIPULAT CTR OF CTR OF ALY [place] MT SPINAL 1-2 REGIONS THERAPEUT 44820 CH[facility] IC PX 1/> 1 [facility] ARE[facility] CTR OF CTR OF EACH [place] [address] [facility] 1/> AREAS 1 [facility] EACH 15 CTR OF CTR [place] [address] [facility] 1/> AREAS 1 [facility] EACH 15 CTR OF CTR OF MIN MT MT NEUROMUSC REEDUCA THERAPEUT 09010 [facility] ONE CHIRO ONE IC PX 1/> 1 [facility]LL[facility] AREAS CTR OF CTR OF EACH 15 MT MT MIN EXERCISES CHIROPRAC 21195 [facility] TIC 1 [facility] WELLNESS MANIPULAT CTR OF CTR OF ALY TX MT MT SPINAL 1-2 REGIONS APPL 79264 [facility] MODALITY 1 [facility] WELLNESS 1/> AREAS CTR OF CTR OF TRACTION MT MT MECHANICA L THERAPEUT 71767 [facility] ACTVITY 1 [facility]NESS DIRECT PT CTR OF CTR OF CONTACT MT MT EACH 15 MIN THERAPEUT 64035 [facility] ACTVITY 1 [facility]NESS DIRECT PT CTR OF CTR OF CONTACT MT MT EACH 15 MIN APPL 01058 [facility] MODALITY 1 [facility] WELLNESS 1/> AREAS CTR OF CTR OF TRACTION MT MT MECHANICA L CHIROPRAC 99705 [facility] TIC 1 [facility] WE[facility]NESS MANIPULAT CTR OF CTR OF ALY TX MT MT SPINAL 1-2 REGIONS SELF-CARE 27171 [facility] /HOME 1 [facility] MGMT CTR OF CTR OF TRAINING MT MT EACH 15 MINUTES THERAPEUT 29880 CH[facility] ONE IC PX 1/> 1 [facility] AREAS CTR OF CTR OF EACH 15 [place] [address] [facility]IR[facility] ONE 1/> AREAS 1 [facility] EACH 15 CTR OF CTR [place] [address] [facility] CHIRO ONE 1/> AREAS 1 [facility] EACH 15 CTR OF CTR OF MIN MT MT NEUROMUSC REEDUCA THERAPEUT 72762 [facility]IR[facility] ONE IC PX 1/> 1 [facility] WELLNESS AREAS CTR OF CTR OF EACH 15 MT MT MIN EXERCISES CHIROPRAC 88604 [facility] TIC 1 [facility]LL[facility] WELLNESS MANIPULAT CTR OF CTR OF ALY TX MT MT SPINAL 1-2 REGIONS APPL 75049 [facility] MODALITY 1 [facility]LLNESS 1/> AREAS CTR OF CTR OF TRACTION MT MT MECHANICA L THERAPEUT 04614 [facility] ACTVITY 1 [facility] DIRECT PT CTR OF CTR OF CONTACT MT MT EACH 15 MIN THERAPEUT 26259 [facility] ACTVITY 1 [facility]NESS DIRECT PT CTR OF CTR OF CONTACT MT MT EACH 15 MIN APPL 27918 [facility] MODALITY 1 [facility]NESS 1/> AREAS CTR OF CTR OF TRACTION MT MT MECHANICA L CHIROPRAC 57306 [facility] TIC 1 [facility] WELLNESS MANIPULAT CTR OF CTR OF ALY TX MT MT SPINAL 1-2 REGIONS THERAPEUT 64498 CH[facility] IC PX 1/> 1 [facility] AREAS CTR OF CTR OF EACH 15 [place] [address] [facility] ONE 1/> AREAS 1 [facility] EACH 15 CTR OF CTR [place] [address] [facility]IR[facility] ONE 1/> AREAS 1 [facility] EACH 15 CTR OF CTR OF MIN MT MT NEUROMUSC REEDUCA THERAPEUT 47574 [facility] ONE IC PX 1/> 1 [facility] AREAS CTR OF CTR OF EACH 15 MT MT MIN EXERCISES CHIROPRAC 80597 [facility] TIC 1 [facility] WELLNESS MANIPULAT CTR OF CTR OF ALY TX MT MT SPINAL 1-2 REGIONS APPL 29596 [facility] MODALITY 1 [facility] WELLNESS 1/> AREAS CTR OF CTR OF TRACTION MT MT MECHANICA L THERAPEUT 79522 [facility] ACTVITY 1 [facility]NESS DIRECT PT CTR OF CTR OF CONTACT MT MT EACH 15 MIN THERAPEUT 19668 [facility] ACTVITY 1 [facility] DIRECT PT CTR OF CTR OF CONTACT MT MT EACH 15 MIN APPL 50960 [facility] MODALITY 1 [facility] WELLNESS 1/> AREAS CTR OF CTR OF TRACTION MT MT MECHANICA L CHIROPRAC 13815 [facility] TIC 1 [facility]NESS MANIPULAT CTR OF CTR OF ALY TX MT MT SPINAL 1-2 REGIONS THERAPEUT 02300 [facility] IC PX 1/> 1 [facility] AREAS CTR OF CTR OF EACH [place] [address] [facility] ONE 1/> AREAS 1 [facility] EACH 15 CTR OF CTR [place] [address] [facility] ONE 1/> AREAS 1 [facility] EACH 15 CTR OF CTR OF MIN MT MT NEUROMUSC REEDUCA THERAPEUT 38562 [facility] ONE IC PX 1/> 1 [facility] AREAS CTR OF CTR OF EACH 15 MT MT MIN EXERCISES CHIROPRAC 11536 [facility] TIC 1 [facility] MANIPULAT CTR OF CTR OF ALY [place] MT MT SPINAL 1-2 REGIONS APPL 21017 [facility] MODALITY 1 [facility]LLNESS 1/> AREAS CTR OF CTR OF TRACTION MT MT MECHANICA L THERAPEUT 75922 [facility] ACTVITY 1 [facility] DIRECT PT CTR OF CTR OF CONTACT MT MT EACH 15 MIN THERAPEUT 47711 [facility] ACTVITY 1 [facility] DIRECT PT CTR OF CTR OF CONTACT MT MT EACH 15 MIN APPL 22429 [facility] MODALITY 1 [facility]NESS 1/> AREAS CTR OF CTR OF TRACTION MT MT MECHANICA L CHIROPRAC 93212 [facility] TIC 1 [facility] MANIPULAT CTR OF CTR OF ALY TX MT MT SPINAL 1-2 REGIONS THERAPEUT 51318 [facility] ONE [facility] ONE IC PX 1/> 1 [facility] AREAS CTR OF CTR OF EACH 15 [place] [address] [facility] 1/> AREAS 1 [facility] EACH 15 CTR OF [facility] [place] [address] [facility] 1/> AREAS 1 [facility] EACH 15 CTR OF CTR OF MIN MT MT NEUROMUSC REEDUCA THERAPEUT 41834 [facility] ONE IC PX 1/> 1 [facility] AREAS CTR OF CTR OF EACH 15 MT MT MIN EXERCISES CHIROPRAC 32421 [facility] ENGLAND TIC [address] MANIPULAT CTR OF ALY TX MT SPINAL 1-2 REGIONS APPL 07540 [facility] MODALITY 1 [facility]NESS 1/> AREAS CTR OF CTR OF TRACTION MT MT MECHANICA L APPL 15596 [facility] MODALITY 1 [facility]NESS 1/> AREAS CTR OF CTR OF TRACTION MT MT MECHANICA L CHIROPRAC 64263 [facility] TIC 1 [facility] MANIPULAT CTR OF CTR OF ALY [place] MT SPINAL 1-2 REGIONS THERAPEUT 82315 [facility] IC PX 1/> 1 [facility] AREAS CTR OF CTR OF EACH [place] [address] [facility] 1/> AREAS 1 [facility] EACH 15 CTR OF CTR OF MIN MT MT NEUROMUSC REEDUCA THERAPEUT 55095 [facility] ACTVITY 1 [facility] DIRECT PT CTR OF CTR OF CONTACT MT MT EACH 15 MIN THERAPEUT 14711 [facility] HODGES ACTVITY 1 WELLNESS RIT DIRECT PT CTR OF CONTACT [place] [address] [place] [address] [facility] ONE 1/> AREAS 1 [facility] EACH 15 CTR OF CTR OF MIN MT MT NEUROMUSC REEDUCA THERAPEUT 81603 [facility] HODGES IC PX /> 1 WELLNESS RIT AREAS CTR OF EACH 15 MT MIN EXERCISES CHIROPRAC 77963 [facility] TIC 1 [facility] MANIPULAT CTR OF CTR OF ALY [place] MT MT SPINAL 1-2 REGIONS APPL 95656 [facility] MODALITY 1 [facility] 1/> AREAS CTR OF CTR OF TRACTION MT MT MECHANICA L RADEX 04097 [facility] JOSE G SPINE 1 [facility] CERVICAL CTR OF 2 OR 3 MT VIEWS CHIROPRAC 81053 [facility] JOSE G TIC 1 [facility] [place] MANIPULAT CTR OF ALY [place] SPINAL 1-2 REGIONS RADEX 02405 [facility] JOSE G SPINE 1 [facility] CERVICAL CTR OF 2 OR 3 MT VIEWS RADEX 17190 [facility] JOSE G SPINE 1 [facility] [place] LUMBOSACR CTR OF AL 2/3 MT VIEWS IAADIADOO 87380 ABBIE NI ADN 1 [facility] A RADEX 07147 [facility] HAND 1 EIDER SOSA MINIMUM 3 RADIOLOGY VIEWS ASSOCIAT ECG 81448 RASHEL SWAN SWAN RASHEL ROUTINE 1 ECG CONSULTIN W/LEAST G SRV 12 LDS I&R ONLY OPHTH 98702 CHRISTOPHER JAMES MEDICAL 0 VISION ANG XM&EVAL COMPRHNSV ESTAB PT 1/> COMPREHEN 53911 MINDI OBREGON SIVE 0 [facility] METABOLIC INC INC PANEL RADIOLOGI 66939 IMNDI OBREGON C EXAM 0 [facility] CHEST 2 INC INC VIEWS FRONTAL[place] [address] MINDI OBREGON STREPTOCO 0 [facility] [place] [address] MINDI OBREGON INFUSION 0 [facility] THER INC INC PROPH ADDL SEQUENTIA L TO 1 HR IMMUNOASS 61408 MINDI OBREGON AY NFCT 0 [facility] AGT ANTB INC INC QUAL/SEMI TETO 1 STEP URNLS DIP 19378 MINDI OBREGON 0 [facility] STICK/TAB INC INC LET REAGENT AUTO MICROSCOP Y BLOOD 35888 MINDI OBREGON COUNT 0 [facility] COMPLETE INC INC AUTO&[place] [address] MINDI OBREGON INFUSION 0 [facility] THERAPY/P INC INC ROPHYLAXI S /DX 1ST TO 1 HR OPH 28412 CHRISTOPHER JAMES, [facility] 9 VISION [place] M XM&EVAL COMPRE NEW PT 1/> VST Encounters Encounter Start End Date Code Location Performer Type Date OFFICE 75072 LAST CARTYMED ADN OUTPATIEN 3 3 T VISIT 15 MINUTES EMERGENCY 55564 GAEL GAEL 2 2 HEN HEN DEPARTMEN T VISIT MODERATE SEVERITY OFFICE 97743 MACHELLEMED JANINE CARTYMED ADN OUTPATIEN 2 2 T VISIT 25 MINUTES HOSPITAL [facility] - 2 2 EVAPORATOR REPAIRER OUTPATIEN [facility]E T CO [facility]OS EMERGENCY 62033 [facility], 2 2 EVAPORATOR REPAIRER DEPARTMEN ABBIE T VISIT CO HOS LIMITED/M [facility] - 2 2 EVAPORATOR REPAIRER OUTPATIEN ABBIE T CO HOS EMERGENCY 95465 [facility], 2 2 EVAPORATOR REPAIRER DEPARTMEN ABBIE T VISIT CO HOS MODERATE SEVERITY OFFICE 99773 ALYSSA SHAH OUTPATIEN 2 2 EVERARDO EVERARDO T VISIT 15 MINUTES EMERGENCY 54667 LAST MEHTA 1 1 DEPARTMEN T VISIT LIMITED/M [facility] - [facility] 86290 [facility] OUTPATIEN 1 1 [facility]LL[facility] T VISIT CTR OF 15 MT MINUTES OFFICE 28285 [facility] OUTPATIEN 1 1 WELLNESS T VISIT 5 CTR OF MINUTES MT OFFICE 63177 [facility] JOSE G OUTPATIEN 1 1 [facility]LL[facility]AP[facility] T VISIT CTR OF 10 MT MINUTES OFFICE 70340 [facility] JOSE G OUTPATIEN 1 1 [facility] T NEW 45 CTR OF MINUTES MT OFFICE 15912 AB[facility]E ROMANEN 1 1 COUNTY T NEW 45 RURAL MINUTES HEALTH OFFICE 45151 SWARTZ SWARTZ OUTPATIEN 1 1 [facility] MIN[facility]ES EMERGENCY 63228 ABBIE MEHTA 1 1 [facility] RURAL T VISIT HEALTH HIGH/URGE NT SEVERITY HOSPITAL [facility]BIE - 1 1 [facility] 89596 [facility] 1 [facility] VISIT LIMITED/M INOR PROB OFFICE 64896 ALYSSA SHAH OUTPATIEN 0 0 EVERARDO EVERARDO T NEW 30 MINUTES EMERGENCY 13045 MINDI 0 0 [facility] DEPARTMEN INC T VISIT MODERATE SEVERITY HOSPITAL MINDI - 0 0 [facility] OUTPATIEN INC T EMERGENCY 53214 JENNIFER HINTON, 0 0 EMERGENCY [facility] S DEPARTMEN SERVICES T VISIT HIGH/URGE ASSOCIATE DORITA S SEVERITY
--- OUTSIDE RECORDS SUMMARY | 2017-05-06 17:15 | External Medical Summary Rpt ---
Author Author , CONSTANZA Organization CONSTANZA Address Unknown Phone [email or web address] Care Team Providers Care Pre Certification Specialist Name Role Phone AHMED ADN, AHMED ADN Unavailable Unavailable AHMED ADN, AHMED ADN Unavailable Unavailable ARNOLD EVERARDO, ARNOLD Unavailable Unavailable EVERARDO ARNOLD EVERARDO, ARNOLD Unavailable Unavailable EVERARDO [facility] [employer] Unavailable Unavailable COMPANY, [facility] SWAN RASHEL, SWAN RASHEL Unavailable Unavailable KATHY, MANNY, Unavailable Unavailable KATHY, MANNY [facility] [place]available [place], [facility] [place] GAEL HEN, GAEL Unavailable Unavailable HEN GAEL HEN, GAEL Unavailable Unavailable HEN MOON HINTON, Unavailable Unavailable MOON HINTON RIT, HODGES Unavailable Unavailable RIT ENGLAND TER, ENGLAND Unavailable Unavailable TER [facility] Un[facility] Un[facility], [facility] MASTERS EVERARDO, MASTERS Unavailable Unavailable EVERARDO TURCIOS COLBY, TURCIOS COLBY Unavailable Unavailable TURCIOS COLBY, TURCIOS COLBY Unavailable Unavailable JENNIFER GRE, Unavailable Unavailable JENNIFER GRE JENNIFER GRE, Unavailable Unavailable JENNIFER GRE [facility] Un[facility], KEYBOARD INSTRUMENT REPAIRER [facility] Unavailable Unavailable CO H[facility], [facility], KEYBOARD INSTRUMENT REPAIRER [facility], Unavailable Unavailable [facility] Unavailable Unavailable HEALTH, [facility] SWARTZ JAM, SWARTZ Unavailable Unavailable JAM SWARTZ JAM, SWARTZ Unavailable Unavailable JAM SCIFRES ANG, SCIFRES Unavailable Unavailable ANG [place]OOK[place] JAMES M, Unavailable Unavailable [place] JAMES M JOSE G CHAPA, JOSE G Unavailable Unavailable EDUARD DONOVAN, DAVID Unavailable Unavailable JR DONOVAN Purpose Continuity of Care Document - 06-03-2009 [...] HX 04-15-2012 GAEL HEN TOBACCO USE PRESENTING HAZARDS HEALTH V5869 LONG-TERM 04-15-2012 GAEL HEN (CURRENT) USE OF OTHER MEDICATIONS 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 81239 PAIN IN 03-21-2012 [facility], RADIOLOGY UPPER ARM ASSOCIAT 51740 PAIN IN 03-21-2012 AHMED ADN [facility] PELVIC REGION AND THIGH 7231 CERVICALGIA 03-21-2012 [facility] 7291 UNSPECIFIED 03-21-2012 [facility], MYALGIA KEYBOARD INSTRUMENT REPAIRER AND [facility] MYOSITIS HOS 7292 UNSPECIFIED 03-21-2012 [facility], NEURALGIA KEYBOARD INSTRUMENT REPAIRER NEURITIS [facility] CO AND HOS RADICULITIS 7295 PAIN IN 03-21-2012 [facility] TISSUES OF ASSOCIAT LIMB 61803 PAIN IN 02-18-2012 [place] [place] [facility], RADIOLOGY ANKLE AND ASSOCIAT FOOT 36543 UNSPECIFIED 02-18-2012 [facility], SITE OF KEYBOARD INSTRUMENT REPAIRER ANKLE [facility] CO SPRAIN AND HOS STRAIN 9599 INJURY 02-18-2012 [place] OTHER AND [facility] UNSPECIFIED ASSOCIAT UNSPECIFIED SITE 462 ACUTE 12-07-2011 ARNOLD EVERARDO PHARYNGITIS 4660 ACUTE 12-07-2011 ARNREMA EVERARDO BRONCHITIS 80539 UNSPECIFIED 10-25-2011 JENNIFER GRE ASTIGMATISM 0088 INTESTINAL 08-29-2011 [facility] DUE TO OTHER ORGANISM NEC 7242 LUMBAGO 08-22-2011 [facility] [place] 7391 NONALLOPATH 08-22-2011 [facility]ERV[facility] [place] REGION NEC 7393 NONALLOPATH 08-22-2011 [facility] LUMBAR [facility] [place] REGION NEC 0549 HERPES 06-05-2011 [facility] WITHOUT RURAL MENTION OF HEALTH COMPLICATIO N 72574 CLOS 02-22-2011 SWARTZ JAM FRACTURE MID/PROXIMA L PHALANX/PHA LANG HAND 22698 CLOSED 02-21-2011 [facility] UNSPEC RURAL PHALANX/PHA HEALTH LANGES HAND 486 PNEUMONIA, 01-24-2010 [facility] UNSPECIFIED SERVICES ASSOCIATES 7862 COUGH 01-24-2010 [facility] Medications Na ND Rx [...] 30 11 [address] N 50 UG 0 MG CO MP CA [...] 1 60 30 CA 68 AH Ac ID 74 -2 -2 .0 RL 16 ME ti OX 60 5- 5- 00 IS 64 D ve EN 18 20 20 LE AD 90 11 [address] Zaragoza 5 UG MG CO TA MP BL [...] 20 20 DE YC 61 10 10 MA IN 8 PH CH AR AE 25 MA L 0 CY S MG OF TA BL CY ET NT HI AN A 49 04 04 0 40 10 EA 17 GA Ac 88 -2 -[address] 36 IN ti 40 7- 7- 00 SI 15 EY ve 77 20 20 DE 70 10 10 MA 1 PH CH AR AE MA L CY S OF CY NT HI AN A Procedures Procedure DOS Code Location Performer Comment [facility] [address]393 [facility] 4 XM&EVAL COMPRHNSV ESTAB PT 1/> DETERMINA 67498 JENNIFER RODRIGUEZ TION 3 GRE GRE REFRACTIV E STATE OPHTH 19528 JENNIFER RODRIGUEZ MEDICAL 3 GRE GRE XM&EVAL COMPRHNSV ESTAB PT 1/> BLOOD 01920 [facility], [facility], COUNT 2 KEYBOARD INSTRUMENT REPAIRER KEYBOARD INSTRUMENT REPAIRER SMEAR [facility] LEIVA MCRSCP CO HOS CO HOS W/MNL DIFRNTL WBC COUNT RADEX 79046 [facility] SPINE 2 [facility] 4 OR 5 ASSOCIAT VIEWS RADEX 15150 [facility], [facility] ELBOW 2 2 KEYBOARD INSTRUMENT REPAIRER KEYBOARD INSTRUMENT REPAIRER VIEWS ABBIE [facility]E CO HOS CO HOS RADIOLOGI 45294 [facility] C 2 EVERARDO EXAMINATI RADIOLOGY ON FEMUR ASSOCIAT 2 VIEWS RADEX 04724 [facility] ELBOW 2 EVERARDO COMPLETE RADIOLOGY MINIMUM 3 ASSOCIAT VIEWS CREATINE 33510 [facility], [facility], KINASE 2 KEYBOARD INSTRUMENT REPAIRER KEYBOARD INSTRUMENT REPAIRER TOTAL ABBIE [facility] CO [facility]OS CO HOS SEDIMENTA 14084 [facility], [facility], TION RATE 2 KEYBOARD INSTRUMENT REPAIRER KEYBOARD INSTRUMENT REPAIRER RBC [facility]E LE[facility] NON-AUTOM CO HOS CO HOS ATED COMPREHEN 53130 [facility], [facility], SIVE 2 KEYBOARD INSTRUMENT REPAIRER KEYBOARD INSTRUMENT REPAIRER METABOLIC [facility] LEIV[facility] PANEL CO HOS CO HOS CREATINE 20700 [facility], [facility], KINASE MB 2 KEYBOARD INSTRUMENT REPAIRER KEYBOARD INSTRUMENT REPAIRER FRACTION ABBIE [facility] ONLY CO HOS CO HOS BLOOD 41013 [facility], DAVID FERRARA COUNT 2 KEYBOARD INSTRUMENT REPAIRER ZION COMPLETE ABBIE AUTO&AUTO CO HOS DIFRNTL WBC RHEUMATOI 77567 [facility], [facility], D FACTOR 2 KEYBOARD INSTRUMENT REPAIRER KEYBOARD INSTRUMENT REPAIRER QUANTITAT ABBIE [facility] ALY CO HOS CO HOS MYOGLOBIN 80501 [facility], [facility], 2 KEYBOARD INSTRUMENT REPAIRER KEYBOARD INSTRUMENT REPAIRER ABBIE ABBIE CO HOS CO HOS RADEX 04904 [facility], [facility], ANKLE 2 KEYBOARD INSTRUMENT REPAIRER KEYBOARD INSTRUMENT REPAIRER COMPLETE ABBIE ABBIE MINIMUM 3 CO HOS [facility] VIEWS RAD[facility]OLOGI 02586 [facility] EVERARDO EXAMINATI RADIOLOGY ON ANKLE ASSOCIAT 2 VIEWS DETERMINA 17399 JENNIFER RODRIGUEZ TION 2 GRE GRE REFRACTIV E STATE OPHTH 43085 JENNIFER RODRIGUEZ MEDICAL 2 GRE GRE XM&EVAL COMPRE NEW PT 1/> VST FRAMES V2020 KAROLINA BOWMAN PURCHASES 2 1 VISN V2103 KAROLINA BOWMAN PLANO 2 TO+/-4.00 D SPHER 0.12-2.00 D CYL EA FITTING 32715 KAROLINA BOWMAN SPECTACLE 2 [place] [address] [facility] 1/> AREAS 1 [facility] EACH 15 [facility] OF CTR OF MIN [place] MT NEUROMUSC REEDUCA THERAPEUT 79322 [facility] IC PX 1/> 1 [facility] AREAS CTR OF CTR OF EACH 15 MT MT MIN EXERCISES THERAPEUT 30699 CH[facility] IC PX 1/> 1 [facility] AREAS CTR OF CTR OF EACH [place] [address] [facility] 1/> AREAS 1 [facility] EACH 15 CTR OF CTR OF MIN [place] MT NEUROMUSC REEDUCA APPL 65939 [facility] MODALITY 1 [facility] 1/> AREAS CTR OF CTR OF TRACTION MT MT MECHANICA L THERAPEUT 58835 [facility] ACTVITY 1 [facility] DIRECT PT CTR OF CTR OF CONTACT MT MT EACH 15 MIN CHIROPRAC 99414 [facility] TIC 1 [facility]NESS MANIPULAT CTR OF CTR OF ALY TX MT MT SPINAL 1-2 REGIONS CHIROPRAC 20521 [facility] TIC 1 [facility] MANIPULAT CTR OF CTR OF ALY TX MT MT SPINAL 1-2 REGIONS THERAPEUT 55574 [facility] ACTVITY 1 [facility] DIRECT PT CTR OF CTR OF CONTACT MT MT EACH 15 MIN APPL 90406 [facility] MODALITY 1 [facility] WELLNESS 1/> AREAS CTR OF [place] [address] [facility] 1/> AREAS 1 [facility] EACH 15 CTR OF CTR OF MIN MT MT NEUROMUSC REEDUCA THERAPEUT 37682 [facility] ONE CHIRO ONE IC PX 1/> 1 [facility] WELLNESS AREAS CTR OF CTR OF EACH 15 MT MT MIN EXERCISES THERAPEUT 40432 [facility] ONE IC PX 1/> 1 [facility]LL[facility] AREAS CTR OF CTR OF EACH [place] [address] [facility]IR[facility] ONE 1/> AREAS 1 [facility] EACH 15 CTR OF CTR OF MIN [place] MT NEUROMUSC REEDUCA APPL 43056 [facility] MODALITY 1 [facility] WELLNESS 1/> AREAS CTR OF CTR OF TRACTION MT MT MECHANICA L THERAPEUT 52635 [facility] ACTVITY 1 [facility]NESS DIRECT PT CTR OF CTR OF CONTACT MT MT EACH 15 MIN CHIROPRAC 73520 [facility] TIC 1 [facility]NESS MANIPULAT CTR OF CTR OF ALY TX MT MT SPINAL 1-2 REGIONS CHIROPRAC 31712 [facility] TIC 1 [facility] WELLNESS MANIPULAT CTR OF CTR OF ALY [place] MT SPINAL 1-2 REGIONS THERAPEUT 42816 [facility] ACTVITY 1 [facility] DIRECT PT CTR OF CTR OF CONTACT MT MT EACH 15 MIN SELF-CARE 27084 [facility] /HOME 1 [facility] MGMT CTR OF CTR OF TRAINING MT MT EACH 15 MINUTES APPL 52460 [facility] MODALITY 1 [facility]LLNESS 1/> AREAS CTR OF [place] [address] [facility] 1/> AREAS 1 [facility] EACH 15 CTR OF CTR OF MIN MT MT NEUROMUSC REEDUCA THERAPEUT 02764 [facility] ONE [facility] ONE IC PX 1/> 1 [facility]LLNESS AREAS CTR OF CTR OF EACH 15 MT MT MIN EXERCISES THERAPEUT 75085 [facility] ONE IC PX 1/> 1 [facility]LL[facility] AREAS CTR OF CTR OF EACH [place] [address] [facility] ONE 1/> AREAS 1 [facility] EACH 15 CTR OF CTR OF MIN [place] MT NEUROMUSC REEDUCA APPL 45464 [facility] MODALITY 1 [facility] WELLNESS 1/> AREAS CTR OF CTR OF TRACTION MT MT MECHANICA L THERAPEUT 79782 [facility] ACTVITY 1 [facility] WE[facility]NESS DIRECT PT CTR OF CTR OF CONTACT MT MT EACH 15 MIN CHIROPRAC 35339 [facility] TIC 1 WE[facility]NESS WELLNESS MANIPULAT CTR OF CTR OF ALY TX MT MT SPINAL 1-2 REGIONS CHIROPRAC 73211 [facility] TIC 1 [facility]NESS MANIPULAT CTR OF CTR OF ALY TX MT MT SPINAL 1-2 REGIONS THERAPEUT 67399 [facility] ACTVITY 1 [facility]LL[facility] DIRECT PT CTR OF CTR OF CONTACT MT MT EACH 15 MIN APPL 04433 [facility] MODALITY 1 [facility]NESS 1/> AREAS CTR OF [place] [address] [facility] 1/> AREAS 1 [facility]NESS EACH 15 CTR OF CTR OF MIN MT MT NEUROMUSC REEDUCA THERAPEUT 90365 [facility] IC PX /> 1 [facility]NESS AREAS CTR OF CTR OF EACH 15 MT MT MIN EXERCISES THERAPEUT 96823 CH[facility] IC PX /> 1 [facility] AREAS CTR OF CTR OF EACH 15 [place] [address] [facility] ONE 1/> AREAS 1 [facility] EACH 15 CTR OF CTR OF MIN MT MT NEUROMUSC REEDUCA APPL 76140 [facility] MODALITY 1 WE[facility]NESS WELLNESS 1/> AREAS CTR OF CTR OF TRACTION MT MT MECHANICA L THERAPEUT 79636 [facility] ACTVITY 1 [facility] WELLNESS DIRECT PT CTR OF CTR OF CONTACT MT MT EACH 15 MIN CHIROPRAC 24081 [facility] TIC 1 WE[facility] WELLNESS MANIPULAT CTR OF CTR OF ALY [place] MT SPINAL 1-2 REGIONS CHIROPRAC 41294 [facility] TIC 1 [facility] WELLNESS MANIPULAT CTR OF CTR OF ALY [place] MT MT SPINAL 1-2 REGIONS THERAPEUT 89862 [facility] ACTVITY 1 [facility] DIRECT PT CTR OF CTR OF CONTACT MT MT EACH 15 MIN APPL 72821 [facility] MODALITY 1 [facility]NESS 1/> AREAS CTR OF [place] [address] [facility] ONE 1/> AREAS 1 [facility] EACH 15 CTR OF CTR OF MIN MT MT NEUROMUSC REEDUCA THERAPEUT 80561 [facility] ONE IC PX 1/> 1 [facility]NESS AREAS CTR OF CTR OF EACH 15 MT MT MIN EXERCISES THERAPEUT 82918 [facility] IC PX 1/> 1 [facility] AREAS CTR OF CTR OF EACH 15 [place] [address] [facility] ONE 1/> AREAS 1 [facility] EACH 15 CTR OF CTR OF MIN MT MT NEUROMUSC REEDUCA APPL 50708 [facility] MODALITY 1 [facility] WELLNESS 1/> AREAS CTR OF CTR OF TRACTION MT MT MECHANICA L THERAPEUT 07722 [facility] ACTVITY 1 [facility]NESS DIRECT PT CTR OF CTR OF CONTACT MT MT EACH 15 MIN CHIROPRAC 19301 [facility] TIC 1 [facility] WELLNESS MANIPULAT CTR OF CTR OF ALY [place] MT SPINAL 1-2 REGIONS CHIROPRAC 70267 [facility] TIC 1 [facility] MANIPULAT CTR OF CTR OF ALY [place] MT SPINAL 1-2 REGIONS THERAPEUT 58395 [facility] ACTVITY 1 [facility] DIRECT PT CTR OF CTR OF CONTACT MT MT EACH 15 MIN APPL 88419 [facility] MODALITY 1 [facility] 1/> AREAS CTR OF [place] [address] [facility] ONE 1/> AREAS 1 [facility] EACH 15 CTR OF CTR OF MIN MT MT NEUROMUSC REEDUCA THERAPEUT 16942 [facility] ONE IC PX 1/> 1 [facility] AREAS CTR OF CTR OF EACH 15 MT MT MIN EXERCISES THERAPEUT 99288 [facility] IC PX 1/> 1 [facility] AREAS CTR OF CTR OF EACH 15 [place] [address] [facility] ONE 1/> AREAS 1 [facility] EACH 15 CTR OF CTR OF MIN MT MT NEUROMUSC REEDUCA APPL 49767 [facility] MODALITY 1 [facility] 1/> AREAS CTR OF CTR OF TRACTION [place] MT MECHANICA L CHIROPRAC 58121 [facility] ENGLAND TIC [address] MANIPULAT CTR OF [place]Y [place] SPINAL 1-2 REGIONS CHIROPRAC 90861 [facility] TIC 1 [facility] MANIPULAT CTR OF CTR OF ALY [place] MT SPINAL 1-2 REGIONS APPL 08662 [facility] MODALITY 1 [facility]NESS 1/> AREAS CTR OF CTR OF TRACTION MT MT MECHANICA L THERAPEUT 56304 [facility] ACTVITY 1 [facility] DIRECT PT CTR OF CTR OF CONTACT [place] [address] [place] [address] [facility] 1/> AREAS 1 [facility] EACH 15 CTR OF CTR OF MIN MT MT NEUROMUSC REEDUCA THERAPEUT 02486 [facility] IC PX /> 1 [facility]LL[facility] AREAS CTR OF CTR OF EACH 15 MT MT MIN EXERCISES THERAPEUT 62790 [facility] ONE HODGES IC PX /> 1 WELLNESS RIT AREAS CTR OF EACH [place] [address] [facility] ONE 1/> AREAS 1 [facility]LL[facility] EACH 15 CTR OF CTR OF MIN [place] MT NEUROMUSC REEDUCA THERAPEUT 50106 [facility] HODGES ACTVITY 1 WELLNESS RIT DIRECT PT CTR OF CONTACT MT EACH 15 MIN APPL 83143 [facility] MODALITY 1 [facility]LLNESS 1/> AREAS CTR OF CTR OF TRACTION [place] MT MECHANICA L CHIROPRAC 64113 [facility] TIC 1 [facility] MANIPULAT CTR OF CTR OF ALY [place] MT SPINAL 1-2 REGIONS CHIROPRAC 81661 [facility] JOSE G TIC 1 WELLNESS [place] MANIPULAT CTR OF ALY [place] SPINAL 1-2 REGIONS RADEX 08879 [facility] JOSE G SPINE 1 [facility] CERVICAL CTR OF 2 OR 3 MT VIEWS RADEX 12683 [facility] JOSE G SPINE 1 [facility] CERVICAL CTR OF 2 OR 3 MT VIEWS RADEX 29082 [facility] JOSE G SPINE 1 WELL[facility] LUMBOSACR CTR OF AL 2/3 MT VIEWS IAADIADOO 73[address] NI ADN [address] [facility] A RADEX 93667 AB[facility] LEIVA HAND 1 CO CO MINIMUM 3 HOSPITAL HOSPITAL VIEWS ECG 80341 RASHEL SWAN SWAN RASHEL ROUTINE 1 MD ECG CONSULTIN W/LEAST G SRV 12 LDS I&R ONLY OPHTH 17287 CHRISTOPHER JAMES MEDICAL 0 VISION ANG XM&EVAL COMPRHNSV ESTAB PT 1/> RADIOLOGI 68407 Elana BEAVERS EXAM 0 MEDICAL MANNY CHEST 2 IMAGING VIEWS ASSOCIATE FRONTAL&[place] [address] [facility] INFUSION 0 [facility] THERAPY/P INC INC ROPHYLAXI S /DX 1ST TO 1 HR BLOOD 88614 [facility] COUNT 0 [facility] COMPLETE INC INC AUTO&AUTO DIFRNTL WBC COMPREHEN 85979 [facility] SIVE 0 [facility] METABOLIC INC INC PANEL URNLS DIP 29101 [facility] 0 [facility] STICK/TAB INC INC LET REAGENT AUTO MICROSCOP Y IMMUNOASS 86446 [facility] AY NFCT 0 [facility] AGT ANTB INC INC QUAL/SE[place]ETO 1 [place] [address] [facility] STREPTOCO 0 [facility] [place] [address] [facility] INFUSION 0 [facility] THER INC INC PROPH ADDL SEQUENTIA L TO 1 HR OPHTH 67172 CHRISTOPHER LENNYEVERARDO [facility] 9 VISION BROOKLYN M XM&EVAL COMPRE NEW PT 1/> VST Encounters Encounter Start End Date Code Location Performer Type Date OFFICE 05659 [facility] 3 3 T VISIT 15 MINUTES EMERGENCY 67591 GAEL GAEL 2 2 HEN HEN DEPARTMEN T [facility]IT [facility] - 2 2 KEYBOARD INSTRUMENT REPAIRER OUTPATIEN [facility]E T CO HOS OFFICE 87957 [facility]N OUTPATIEN 2 2 T VISIT 25 MINUTES EMERGENCY 75459 [facility], 2 2 KEYBOARD INSTRUMENT REPAIRER DEPARTMEN ABBIE T VISIT CO [facility], - 2 2 KEYBOARD INSTRUMENT REPAIRER OUTPATIEN ABBIE T CO HOS EMERGENCY 17769 [facility], 2 2 KEYBOARD INSTRUMENT REPAIRER DEPARTMEN ABBIE T VISIT CO HOS LIMITED/M INOR PROB OFFICE 25012 ALYSSA SHAH OUTPATIEN 2 2 EVERARDO EVERARDO T VISIT 15 MINUTES EMERGENCY 38846 ABBIE 1 1 [facility] T VISIT LIMITED/M INOR [facility] ABBIE - 1 1 [facility] OFFICE 48338 [facility] OUTPATIEN 1 1 [facility]LLNESS T VISIT CTR OF 15 MT MINUTES OFFICE 76299 [facility] OUTPATIEN 1 1 WELLNESS T VISIT 5 CTR OF MINUTES MT OFFICE 91825 [facility] JOSE G OUTPATIEN 1 1 WELLNESS [facility]APA T VISIT CTR OF 10 MT MINUTES OFFICE 01063 [facility] JOSE G OUTPATIEN 1 1 [facility]LL[facility] T NEW 45 CTR OF MINUTES MT OFFICE 05530 [facility] MEHTA OUTPATIEN 1 1 COUNTY T NEW 45 RURAL MINUTES HEALTH OFFICE 86131 SHERIDAN SWARTZ OUTPATIEN 1 1 JAM JAM T NEW 30 MINUTES EMERGENCY 36324 ABBIE MEHTA 1 1 [facility] T VISIT HEALTH HIGH/URGE NT SEVERITY EMERGENCY 45142 [facility]E 1 1 [facility] T VISIT LIMITED/M INOR [facility] HOSPITAL ABBIE - 1 1 [facility] T OFFICE 78871 ALYSSA SHAH OUTPATIEN 0 0 EVERARDO EVERARDO T NEW 30 MINUTES EMERGENCY 80271 MINDI 0 0 [facility] DEPARTMEN INC T [facility]ISIT [facility] MINDI - 0 0 [facility] OUTPATIEN INC T EMERGENCY 32922 JENNIFER HINTON, 0 0 [facility] HIGH/URGE ASSOCIATE NT S SEVERITY
--- OUTSIDE RECORDS SUMMARY | 2017-05-06 17:15 | External Medical Summary Rpt ---
Author Author CONSTANZA James, CONSTANZA James Organization [employer] Address Unknown Phone Unavailable
--- OUTSIDE RECORDS SUMMARY | 2017-05-06 17:15 | External Medical Summary Rpt ---
Author Author , CONSTANZA APODACA Address Unknown Phone [email or web address] Immunization Name Date Rout CVX Reac Dose Comm Prov Is Faci e tion ent ider Refu lity Give sed n Tdap 04-0 115 999 Hist H191 No H191 , 2-20 oric Adso 09 al rbed Info rmat ion - Sour ce Unsp ecif ied MCV4 04-0 147 999 Hist H191 No H191 UF 2-20 oric 09 al Info rmat ion - Sour ce Unsp ecif ied DTaP 06-1 107 999 Hist H191 No H191 , UF 4-20 oric 01 al Info rmat ion - Sour ce Unsp ecif ied MMR 06-1 3 999 Hist H191 No H191 4-20 oric 01 al Info rmat ion - Sour ce Unsp ecif ied Tres 06-1 10 999 Hist H191 No H191 o-IP 4-20 oric V 01 al Info rmat ion - Sour ce Unsp ecif ied DTaP 09-1 107 999 Hist H191 No H191 , UF 6-19 oric 98 al Info rmat ion - Sour ce Unsp ecif ied Hib, 09-1 17 999 Hist H191 No H191 UF 6-19 oric 98 al Info rmat ion - Sour ce Unsp ecif ied MMR 05-2 3 999 Hist H191 No H191 7-19 oric 98 al Info rmat ion - Sour ce Unsp ecif ied Tres 05-2 2 999 Hist H191 No H191 o-OP 7-19 oric V 98 al Info rmat ion - Sour ce Unsp ecif ied Vari 05-2 21 999 Hist H191 No H191 cell 7-19 oric a 98 al Info rmat ion - Sour ce Unsp ecif ied Hep 03-0 8 999 Hist H191 No H191 B, 5-19 oric ped/ 98 al adol Info rmat ion - Sour ce Unsp ecif ied Tres 11-0 2 999 Hist H191 No H191 o-OP 5-19 oric V 97 al Info rmat ion - Sour ce Unsp ecif ied DTP- 11-0 22 999 Hist H191 No H191 Hib 5-19 oric 97 al Info rmat ion - Sour ce Unsp ecif ied DTP- 09-0 22 999 Hist H191 No H191 Hib 4-19 oric 97 al Info rmat ion - Sour ce Unsp ecif ied Tres 09-0 2 999 Hist H191 No H191 o-OP 4-19 oric V 97 al Info rmat ion - Sour ce Unsp ecif ied Hep 06-2 8 999 Hist H191 No H191 B, 3-19 oric ped/ 97 al adol Info rmat ion - Sour ce Unsp ecif ied
--- OUTSIDE RECORDS SUMMARY | 2017-05-06 17:15 | External Medical Summary Rpt ---
Author Author , CONSTANZA Organization CONSTANZA Address Unknown Phone [email or web address] Care Team Providers Care Grey Inspector Name Role Phone AHMED ADN, AHMED ADN Unavailable Unavailable AHMED ADN, AHMED ADN Unavailable Unavailable ARNOLD EVERARDO, ARNOLD Unavailable Unavailable EVERARDO ARNOLD EVERARDO, ARNOLD Unavailable Unavailable EVERARDO [facility] Unavailable Unavailable COMPANY, [facility] [facility] SWAN RASHEL, SWAN RASHEL Unavailable Unavailable KATHY, MANNY, Unavailable Unavailable KATHY, MANNY [facility] [place] [place] [facility] [place] GAEL HEN, GAEL [...] GRE JENNIFER GRE, Unavailable Unavailable JENNIFER GRE [facility] Unavailable Unavailable [facility], ASSISTANT DIRECTOR OF ADMISSIONS [facility] Unavailable Unavailable CO H[facility], [facility], ASSISTANT DIRECTOR OF ADMISSIONS [facility], Unavailable Unavailable [facility] Unavailable Unavailable HEALTH, [facility] SWARTZ JAM, SWARTZ Unavailable Unavailable JAM [...] 10-27-2013 [place] V720 EXAMINATION 11-27-2012 JENNIEFR OF EYES GRE AND VISION 460 ACUTE 11-26-2012 AHMED ADN NASOPHARYNG ITIS 4658 ACUTE URIS 04-15-2012 GAEL HEN OF OTHER MULTIPLE SITES 7856 ENLARGEMENT 04-15-2012 GAEL HEN OF LYMPH NODES V1582 PERS HX 04-15-2012 GAEL HEN TOBACCO USE PRESENTING [facility] V5869 LONG-TERM 04-15-2012 GAEL HEN (CURRENT) USE OF OTHER MEDICATIONS 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 18249 PAIN IN 03-21-2012 [facility], RADIOLOGY UPPER ARM ASSOCIAT 16195 PAIN IN 03-21-2012 AHMED ADN JOINT PELVIC REGION AND THIGH 7231 CERVICALGIA 03-21-2012 [facility] 7291 UNSPECIFIED 03-21-2012 [facility], MYALGIA ASSISTANT DIRECTOR OF ADMISSIONS AND [facility] MYOSITIS [facility]OS 7292 UNSPECIFIED 03-21-2012 [facility], NEURALGIA ASSISTANT DIRECTOR OF ADMISSIONS NEURITIS [facility] CO AND HOS RADICULITIS 7295 PAIN IN 03-21-2012 [facility] TISSUES OF ASSOCIAT LIMB 43517 PAIN IN 02-18-2012 [facility], RADI[facility]Y ANKLE AND ASSOCIAT FOOT 48261 UNSPECIFIED 02-18-2012 [facility], SITE OF ASSISTANT DIRECTOR OF ADMISSIONS ANKLE [facility] CO SPRAIN AND HOS STRAIN 9599 INJURY 02-18-2012 [facility] OTHER AND [facility] UNSPECIFIED ASSOCIAT UNSPECIFIED SITE 462 ACUTE 12-07-2011 ARNOLD EVERARDO PHARYNGITIS 4660 ACUTE 12-07-2011 ARNREMA EVERARDO BRONCHITIS 27203 UNSPECIFIED 10-25-2011 JENNIFER GRE ASTIGMATISM 0088 INTESTINAL 08-29-2011 [facility] DUE TO OTHER ORGANISM NEC 7242 LUMBAGO 08-22-2011 [facility] 7391 NONALLOPATH 08-22-2011 [facility] OF CERVICAL [facility] REGION NEC 7393 NONALLOPATH 08-22-2011 [facility] OF LUMBAR CTR [facility] REGION NEC 0549 HERPES 06-05-2011 [facility] WITHOUT RURAL MENTION OF HEALTH COMPLICATIO N 13784 CLOS 02-22-2011 SWARTZ JAM FRACTURE MID/PROXIMA L PHALANX/PHA LANG HAND 88230 CLOSED 02-21-2011 [facility] UNSPEC RURAL PHALANX/PHA HEALTH LANGES HAND 486 PNEUMONIA, 01-24-2010 [facility] UNSPECIFIED SERVICES [facility] 7862 COUGH 01-24-2010 [facility] Medications Na ND Rx [...] 1 60 30 CA 68 AH Ac [place] 74 -2 -2 .0 RL 16 ME [...] 20 20 DE YC 61 10 10 NE IN 8 PH CH AR AE 25 MA L 0 CY S MG OF TA BL CY ET NT HI AN A 49 04 04 0 40 10 EA 17 GA Ac 88 -2 -[address] 36 IN ti 40 7- 7- 00 SI 15 EY ve 77 20 20 DE 70 10 10 NE 1 PH CH AR AE MA L CY S OF CY NT HI AN A Procedures Procedure DOS Code Location Performer Comment [facility] [address] [facility] 4 XM&EVAL COMPRHNSV ESTAB PT 1/> DETERMINA 38885 JENNIFER RODRIGUEZ TION 3 GRE GRE REFRACTIV E STATE OPHTH 99314 JENNIFER RODRIGUEZ MEDICAL 3 GRE GRE XM&EVAL COMPRHNSV ESTAB PT 1/> BLOOD 50481 [facility], [facility], COUNT 2 ASSISTANT DIRECTOR OF ADMISSIONS ASSISTANT DIRECTOR OF ADMISSIONS SMEAR [facility] MCRSCP CO HOS CO HOS W/MNL DIFRNTL WBC COUNT RADEX 28342 [facility] SPINE 2 [facility] CERVICAL [facility] 4 OR 5 ASSOCIAT VIEWS RADEX 56302 [facility], [facility], ELBOW 2 2 ASSISTANT DIRECTOR OF ADMISSIONS ASSISTANT DIRECTOR OF ADMISSIONS VIEWS ABBIE [facility] CO HOS CO HOS RADIOLOGI 79294 [facility] C 2 EVERARDO EXAMINATI RADIOLOGY ON FEMUR ASSOCIAT 2 VIEWS RADEX 53962 [facility] ELBOW 2 EVERARDO COMPLETE RADIOLOGY MINIMUM 3 ASSOCIAT VIEWS CREATINE 70852 [facility], [facility], KINASE 2 ASSISTANT DIRECTOR OF ADMISSIONS ASSISTANT DIRECTOR OF ADMISSIONS TOTAL AB[facility]OS CO HOS SEDIMENTA 29737 [facility], [facility], TION RATE 2 ASSISTANT DIRECTOR OF ADMISSIONS ASSISTANT DIRECTOR OF ADMISSIONS RBC [facility] NON-AUTOM CO HOS CO HOS ATED COMPREHEN 69015 [facility], [facility], SIVE 2 ASSISTANT DIRECTOR OF ADMISSIONS ASSISTANT DIRECTOR OF ADMISSIONS METABOLIC [facility] PANEL CO HOS CO HOS CREATINE 76210 [facility], [facility], KINASE MB 2 ASSISTANT DIRECTOR OF ADMISSIONS ASSISTANT DIRECTOR OF ADMISSIONS FRACTION AB[facility]E [facility] ONLY CO HOS CO HOS BLOOD 68598 [facility], DAVID FERRARA COUNT 2 ASSISTANT DIRECTOR OF ADMISSIONS ZION COMPLETE [facility] AUTO&AUTO CO HOS DIFRNTL WBC RHEUMATOI 57236 [facility], [facility], D FACTOR 2 ASSISTANT DIRECTOR OF ADMISSIONS ASSISTANT DIRECTOR OF ADMISSIONS QUANTITAT ABBIE [facility] ALY CO HOS CO HOS MYOGLOBIN 74295 [facility], [facility], 2 ASSISTANT DIRECTOR OF ADMISSIONS ASSISTANT DIRECTOR OF ADMISSIONS ABBIE [facility]E CO HOS CO HOS RADEX 09849 [facility], [facility], ANKLE 2 ASSISTANT DIRECTOR OF ADMISSIONS ASSISTANT DIRECTOR OF ADMISSIONS COMPLETE ABBIE ABBIE MINIMUM 3 CO HOS [facility] VIEWS RADIOLOGI 72552 [facility] EVERARDO EXAMINATI RADIOLOGY ON ANKLE ASSOCIAT 2 VIEWS DETERMINA 01385 JENNIFER RODRIGUEZ TION 2 GRE GRE REFRACTIV E STATE OPHTH 10600 JENNIFER RODRIGUEZ MEDICAL 2 GRE GRE XM&EVAL COMPRE NEW PT 1/> VST FRAMES V2020 KAROLINA BOWMAN PURCHASES 2 1 VISN V2103 KAROLINA BOWMAN PLANO 2 TO+/-4.00 D SPHER 0.12-2.00 D CYL EA FITTING 81070 KAROLINA BOWMAN SPECTACLE 2 [place] [address] [facility] 1/> AREAS 1 [facility] 15 [facility] CTR OF MIN [place] MT NEUROMUSC REEDUCA THERAPEUT 43482 [facility] IC PX 1/> 1 [facility] AREAS [facility] OF CTR OF EACH 15 MT MT MIN EXERCISES THERAPEUT 06246 [facility] IC PX 1/> 1 [facility] AREAS CTR OF CTR OF EACH 15 [place] [address] [facility] 1/> AREAS 1 [facility] EACH 15 CTR OF CTR OF MIN MT MT NEUROMUSC REEDUCA APPL 46176 [facility] MODALITY 1 [facility] 1/> AREAS CTR OF CTR OF TRACTION MT MT MECHANICA L THERAPEUT 63525 [facility] ACTVITY 1 [facility] DIRECT PT CTR OF CTR OF CONTACT MT MT EACH 15 MIN CHIROPRAC 44000 [facility] TIC 1 [facility] MANIPULAT CTR OF CTR OF ALY TX MT MT SPINAL 1-2 REGIONS CHIROPRAC 32075 [facility] TIC 1 [facility] MANIPULAT CTR OF CTR OF ALY [place] MT MT SPINAL 1-2 REGIONS THERAPEUT 20632 [facility] ACTVITY 1 [facility] DIRECT PT CTR OF CTR OF CONTACT MT MT EACH 15 MIN APPL 18884 [facility] MODALITY 1 [facility] 1/> AREAS CTR [place] [address] [facility] 1/> AREAS 1 [facility] EACH 15 CTR OF CTR OF MIN MT MT NEUROMUSC REEDUCA THERAPEUT 35739 [facility] ONE IC PX 1/> 1 [facility] AREAS CTR OF CTR OF EACH 15 MT MT MIN EXERCISES THERAPEUT 27010 CH[facility] ONE IC PX 1/> 1 [facility] AREAS CTR OF CTR OF EACH [place] [address] [facility]IR[facility] ONE 1/> AREAS 1 [facility] EACH 15 CTR OF CTR OF MIN [place] MT NEUROMUSC REEDUCA APPL 05804 [facility] MODALITY 1 [facility]LLNESS 1/> AREAS CTR OF CTR OF TRACTION MT MT MECHANICA L THERAPEUT 17362 [facility] ACTVITY 1 [facility] DIRECT PT CTR OF CTR OF CONTACT MT MT EACH 15 MIN CHIROPRAC 47341 [facility] TIC 1 [facility] MANIPULAT CTR OF CTR OF ALY TX MT MT SPINAL 1-2 REGIONS CHIROPRAC 84222 [facility] TIC 1 [facility] MANIPULAT CTR OF CTR OF ALY [place] MT MT SPINAL 1-2 REGIONS THERAPEUT 76180 [facility] ACTVITY 1 [facility] DIRECT PT CTR OF CTR OF CONTACT MT MT EACH 15 MIN SELF-CARE 33207 [facility] /HOME 1 [facility] MGMT CTR OF CTR OF TRAINING MT MT EACH 15 MINUTES APPL 69619 [facility] MODALITY 1 [facility]LLNESS 1/> AREAS CTR [place] [address] [facility] 1/> AREAS 1 [facility] EACH 15 CTR OF CTR OF MIN [place] MT NEUROMUSC REEDUCA THERAPEUT 66127 [facility] ONE IC PX 1/> 1 [facility] AREAS CTR OF CTR OF EACH 15 MT MT MIN EXERCISES THERAPEUT 95326 CH[facility] ONE IC PX 1/> 1 [facility] AREAS CTR OF CTR OF EACH [place] [address] [facility] ONE 1/> AREAS 1 [facility] EACH 15 CTR OF CTR OF MIN [place] MT NEUROMUSC REEDUCA APPL 11433 [facility] MODALITY 1 [facility] 1/> AREAS CTR OF CTR OF TRACTION MT MT MECHANICA L THERAPEUT 14703 [facility] ACTVITY 1 [facility] DIRECT PT CTR OF CTR OF CONTACT MT MT EACH 15 MIN CHIROPRAC 78020 [facility] TIC 1 [facility] MANIPULAT CTR OF CTR OF ALY [place] MT SPINAL 1-2 REGIONS CHIROPRAC 35621 [facility] TIC 1 [facility] MANIPULAT CTR OF CTR OF ALY [place] MT SPINAL 1-2 REGIONS THERAPEUT 08334 [facility] ACTVITY 1 [facility] DIRECT PT CTR OF CTR OF CONTACT [place] MT EACH 15 MIN APPL 67337 [facility] MODALITY 1 [facility] 1/> AREAS CTR [facility] [place] [address] [facility] ONE 1/> AREAS 1 [facility] EACH 15 CTR OF CTR OF MIN MT MT NEUROMUSC REEDUCA THERAPEUT 48332 [facility] ONE IC PX /> 1 [facility] AREAS CTR OF CTR OF EACH 15 MT MT MIN EXERCISES THERAPEUT 71311 [facility] IC PX /> 1 [facility] AREAS CTR OF CTR OF EACH [place] [address] [facility] 1/> AREAS 1 [facility] EACH 15 CTR OF CTR OF MIN MT MT NEUROMUSC REEDUCA APPL 30018 [facility] MODALITY 1 [facility]NESS 1/> AREAS CTR OF CTR OF TRACTION MT MT MECHANICA L THERAPEUT 90522 [facility] ACTVITY 1 [facility] DIRECT PT CTR OF CTR OF CONTACT MT MT EACH 15 MIN CHIROPRAC 57129 [facility] TIC 1 [facility] MANIPULAT CTR OF CTR OF ALY [place] MT SPINAL 1-2 REGIONS CHIROPRAC 09038 [facility] TIC 1 [facility] MANIPULAT CTR OF CTR OF ALY [place] MT SPINAL 1-2 REGIONS THERAPEUT 63237 [facility] ACTVITY 1 [facility] DIRECT PT CTR OF CTR OF CONTACT MT MT EACH 15 MIN APPL 10655 [facility] MODALITY 1 [facility] 1/> AREAS CTR [place] [address] [facility] ONE CHIRO ONE 1/> AREAS 1 [facility] EACH 15 CTR OF CTR OF MIN MT MT NEUROMUSC REEDUCA THERAPEUT 73700 [facility] ONE IC PX 1/> 1 [facility] AREAS CTR OF CTR OF EACH 15 MT MT MIN EXERCISES THERAPEUT 76344 [facility] IC PX 1/> 1 [facility] AREAS CTR OF CTR OF EACH [place] [address] [facility] ONE 1/> AREAS 1 [facility] EACH 15 CTR OF CTR OF MIN MT MT NEUROMUSC REEDUCA APPL 88645 [facility] MODALITY 1 [facility]NESS 1/> AREAS CTR OF CTR OF TRACTION MT MT MECHANICA L THERAPEUT 98026 [facility] ACTVITY 1 [facility] DIRECT PT CTR OF CTR OF CONTACT MT MT EACH 15 MIN CHIROPRAC 15479 [facility] TIC 1 [facility] MANIPULAT CTR OF CTR OF ALY [place] MT SPINAL 1-2 REGIONS CHIROPRAC 67968 [facility] TIC 1 [facility] MANIPULAT CTR OF CTR OF ALY [place] MT SPINAL 1-2 REGIONS THERAPEUT 00550 [facility] ACTVITY 1 [facility] DIRECT PT CTR OF CTR OF CONTACT [place] MT EACH 15 MIN APPL 38727 [facility] MODALITY 1 [facility] 1/> AREAS CTR [facility] [place] [address] [facility] 1/> AREAS 1 [facility] EACH 15 CTR OF CTR OF MIN MT MT NEUROMUSC REEDUCA THERAPEUT 79841 [facility] ONE IC PX 1/> 1 [facility] AREAS CTR OF CTR OF EACH 15 MT MT MIN EXERCISES THERAPEUT 93052 [facility] IC PX 1/> 1 [facility] AREAS CTR OF CTR OF EACH [place] [address] [facility] 1/> AREAS 1 [facility] EACH 15 CTR OF CTR OF MIN [place] MT NEUROMUSC REEDUCA APPL 36121 [facility] MODALITY 1 [facility] 1/> AREAS CTR OF CTR OF TRACTION [place] MT MECHANICA L CHIROPRAC 20543 [facility] ENGLAND TIC [address] MANIPULAT CTR OF ALY [place] SPINAL 1-2 REGIONS CHIROPRAC 37018 [facility] TIC 1 [facility] MANIPULAT CTR OF CTR OF ALY [place] MT SPINAL 1-2 REGIONS APPL 60579 [facility] MODALITY 1 [facility] 1/> AREAS CTR OF CTR OF TRACTION MT MT MECHANICA L THERAPEUT 10931 [facility] ACTVITY 1 [facility] DIRECT PT CTR OF CTR OF CONTACT [place] [address] [place] [address] [facility] 1/> AREAS 1 [facility] EACH 15 CTR OF CTR OF MIN MT MT NEUROMUSC REEDUCA THERAPEUT 13922 [facility] IC PX /> 1 [facility] AREAS CTR OF CTR OF EACH 15 MT MT MIN EXERCISES THERAPEUT 77282 CH[facility] ONE HODGES IC PX /> 1 WELLNESS RIT AREAS CTR OF EACH [place] [address] [facility] 1/> AREAS 1 [facility] EACH 15 CTR OF CTR OF MIN [place] MT NEUROMUSC REEDUCA THERAPEUT 42107 [facility] HODGES ACTVITY 1 WELLNESS RIT DIRECT PT CTR OF CONTACT MT EACH 15 MIN APPL 91688 [facility] MODALITY 1 [facility] 1/> AREAS CTR OF CTR OF TRACTION [place] MT MECHANICA L CHIROPRAC 78664 [facility] TIC 1 [facility] MANIPULAT CTR OF CTR OF ALY [place] MT SPINAL 1-2 REGIONS CHIROPRAC 16596 [facility] JOSE G TIC 1 [facility] [place] MANIPULAT CTR OF ALY [place] SPINAL 1-2 REGIONS RADEX 50569 [facility] JOSE G SPINE 1 [facility] [place] CERVICAL CTR OF 2 OR 3 MT VIEWS RADEX 17617 [facility] JOSE G SPINE 1 [facility] [place] CERVICAL CTR OF 2 OR 3 MT VIEWS RADEX 61331 [facility] JOSE G SPINE 1 [facility] [place] LUMBOSACR CTR OF AL 2/3 MT VIEWS IAADIADOO 02069 AB[facility]E NI ADN 1 [facility] A RADEX 78820 AB[facility]E LEIVA HAND 1 CO CO MINIMUM 3 [facility]OSPITAL HOSPITAL VIEWS ECG 59545 RASHEL SWAN SWAN RASHEL ROUTINE 1 MD ECG CONSULTIN W/LEAST G SRV 12 LDS I&R ONLY OPHTH 63585 CHRISTOPHER JAMES MEDICAL 0 VISION ANG XM&EVAL COMPRHNSV ESTAB PT 1/> RADIOLOGI 27580 Elana BEAVERS EXAM 0 MEDICAL MANNY CHEST 2 IMAGING VIEWS ASSOCIATE FRONTAL&[place] [address] [facility] INFUSION 0 [facility] THERAPY/P INC INC ROPHYLAXI S /DX 1ST TO 1 HR BLOOD 73813 [facility] COUNT 0 [facility] COMPLETE INC INC AUTO&AUTO DIFRNTL WBC COMPREHEN 53910 [facility] SIVE 0 [facility] METABOLIC INC INC PANEL URNLS DIP 34521 [facility]REGON 0 [facility] STICK/TAB INC INC LET REAGENT AUTO MICROSCOP Y IMMUNOASS 46669 [facility] AY NFCT 0 [facility] AGT ANTB INC INC QUAL/[place]ETO 1 [place] [address] [facility] STREPTOCO 0 [facility] [place] [address] M[facility]I [facility]REG[facility] INFUSION 0 [facility] THER INC INC PROPH ADDL SEQUENTIA L TO 1 HR OPHTH 93450 CHRISTOPHER LENNYEVERARDO LAUREL [facility] 9 VISION BROOKLYN M XM&EVAL COMPRE NEW PT 1/> VST Encounters Encounter Start End Date Code Location Performer Type Date OFFICE 98870 [facility] 3 3 T VISIT 15 MINUTES EMERGENCY 69151 GAEL GAEL 2 2 HEN HEN DEPARTMEN T [facility] - 2 2 ASSISTANT DIRECTOR OF ADMISSIONS OUTPATIEN [facility]E T CO HOS OFFICE 38587 [facility] OUTPATIEN 2 2 T VISIT 25 MINUTES EMERGENCY 94087 [facility], 2 2 ASSISTANT DIRECTOR OF ADMISSIONS DEPARTMEN ABBIE T VISIT [facility], - 2 2 ASSISTANT DIRECTOR OF ADMISSIONS OUTPATIEN ABBIE T CO HOS EMERGENCY 51218 [facility], 2 2 ASSISTANT DIRECTOR OF ADMISSIONS DEPARTMEN ABBIE T VISIT CO HOS LIMITED/M INOR PROB OFFICE 14261 ALYSSA SHAH OUTPATIEN 2 2 EVERARDO EVERARDO T VISIT 15 MINUTES EMERGENCY 7[address]22 ABBIE [address] [facility] HOSPITAL T VISIT LIMITED/M INOR [facility] ABBIE - 1 1 [facility] 48948 [facility] OUTPATIEN 1 1 [facility] T VISIT CTR OF 15 MT MINUTES OFFICE 35119 [facility] OUTPATIEN 1 1 WELLNESS T VISIT 5 CTR OF MINUTES MT OFFICE 65008 [facility] JOSE G OUTPATIEN 1 1 [facility] [place] T VISIT CTR OF 10 MT MINUTES OFFICE 49422 [facility] JOSE G OUTPATIEN 1 1 [facility] [place] T NEW 45 CTR OF MINUTES MT OFFICE 93392 AB[facility]E MEHTA OUTPATIEN 1 1 [facility] T NEW 45 RURAL MINUTES HEALTH OFFICE 67645 SHERIDAN SWARTZ OUTPATIEN 1 1 JAM JAM T NEW 30 MINUTES EMERGENCY 76729 ABBIE MEHTA 1 1 [facility] T VISIT HEALTH HIGH/URGE NT SEVERITY EMERGENCY [address] ABBIE [address] [facility] HOSPITAL T VISIT LIMITED/M INOR PROB HOSPITAL ABBIE - 1 1 [facility] T OFFICE 70438 ALYSSA SHAH OUTPATIEN 0 0 EVERARDO EVERARDO T NEW 30 MINUTES EMERGENCY 28377 MINDI 0 0 [facility] DEPARTMEN INC T [facility]ISIT [facility] MINDI - 0 0 [facility] OUTPATIEN INC T EMERGENCY 42526 JENNIFER HINTON, 0 0 [facility] HIGH/URGE ASSOCIATE NT S SEVERITY
--- OUTSIDE RECORDS SUMMARY | 2017-05-06 17:15 | External Medical Summary Rpt ---
Author Author , CONSTANZA APODACA Address Unknown Phone Immunization Name Date Rout CVX Reac Dose [...]
--- OUTSIDE RECORDS SUMMARY | 2017-05-06 17:15 | External Medical Summary Rpt ---
Author Author CONSTANZA Jmaes, CONSTANZA James Organization [employer] Address Unknown Phone Unavailable
== END 2017-05-05 13:23 | disposition home or self-care (01) ==
LOC: ER 12:47
DX: S60.221A Contusion of right hand, initial encounter (principal); V11.4XXA Pedal cycle driver injured in collision with other pedal cycle in traffic accident, initial encounter; Y92.414 Local residential or business street as the place of occurrence of the external cause

== ENCOUNTER 2017-06-05 20:05 | Emergency (ER) | payer SELFPAY ==
[~2017-06-05] VITALS: Ht 182.9 cm; Wt 90.7 kg
[2017-06-05 20:59] LABS: LYMPH # 1.7 K/mm3 (0.7-4.5); LYMPH % 17.3 % (10-50)
[2017-06-05 21:10] LABS: URINE BILIRUBIN - DIPSTICK NEGATIVE (NEG); URINE BLOOD TRACE-INTACT (NEG)
[2017-06-05 21:16] LABS: HEMOGLOBIN 13.5 g/dL (14.1-18.0)
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
[2017-06-05 21:23] LABS: URINE SQUAMOUS CELLS OCC #/hpf (OCC)
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
[2017-06-05 23:16] VITALS: BP 150/87
== END 2017-06-05 23:16 | disposition home or self-care (01) ==
LOC: ER 20:05
PROVIDERS: Emergency Medicine
DX: S00.03XA Contusion of scalp, initial encounter (principal); S20.219A Contusion of unspecified front wall of thorax, initial encounter; S63.91XA Sprain of unspecified part of right wrist and hand, initial encounter; R50.9 Fever, unspecified; Y04.2XXA Assault by strike against or bumped into by another person, initial encounter